=== PATIENT | female | born 1950 | race Caucasian/White ===

== ENCOUNTER 2016-05-26 10:57 | Inpatient (IN) | payer MEDICARE ==
[~2016-05-26] VITALS: Ht 167.6 cm; Wt 117.8 kg
[~2016-05-26 10:57] MED LIST: ALBU18HF2 INH; ALBU18HF4 IH; ALBU8.5H INH; AMLO5TAB PO; BACL10TA PO; CALC-16 PO; CELE-85 PO; FENT1PAT53 TD; FLUD0.1T10 PO; FLUT16SP EA NOSTRIL; HYDR-4078 PO; LEVO100T12 PO; LISI40TA4 PO; MAGN400T26 PO; METF-200 PO; MONT10TA25 PO; NICO1PAT16 TOP; NITR0.4T SL; OMEP40CA52 PO
--- OUTSIDE RECORDS SUMMARY | 2016-05-26 12:52 | XMS REPORT | Continuity of Care Document ---
Author Author [facility] Organization [facility] Address Unknown Phone Unavailable Support Name Relationship Address Phone SUSAN GONSALES MD [place] [address] ROLANDYUE PARISREN Next Of Kin Unknown [phone] Insurance Providers Payer Name Policy Number Subscriber Name Relationship Medicare [id number] Con Harrell 17 Self Advance Directives Directive Response Recorded Date/Time Advanced Directives Type None 09/15/13 3:01am Ordered Resuscitation Status Full Code, unverified 08/20/13 8:00am Resuscitation Documents on File No 08/20/13 9:43am Chief Complaint and Reason for Visit Chief Complaint SYMPTOMATIC ANEMIA Reason for Visit Dyspnea Pulmonary edema Anemia Problems Medical Problems Problem Onset Date Status Dyspnea Unknown Active Headache Unknown Active Chest pain, rule out acute myocardial infarction Unknown Active Dyspnea Unknown Active Chest pain, atypical Unknown Active Chest pain, atypical Unknown Active Chest pain, rule out acute myocardial infarction Unknown Active Back pain, thoracic Unknown Active Chest pain, rule out acute myocardial infarction Unknown Active Pulmonary edema Unknown Active Fluid overload Unknown Active Angioedema Unknown Active Anemia 03/01/2014 Active Medications Medication Dose Route Sig Days/Qty Instructions Order Date Discontinued Date Status Olmesartan/Hydrochlorothiazide 1 Udtab PO 03/27/08 06/12/09 Discontinued Cyclobenzaprine Hcl 10 Mg PO BEDTIME 07/02/09 03/16/12 Discontinued Fexofenadine Hcl 180 Mg PO 03/27/08 06/12/09 Discontinued Propranolol Hcl 40 Mg PO 03/27/08 06/12/09 Discontinued Prednisone 10 Mg PO 03/27/08 04/24/08 Discontinued Azithromycin 250 Mg PO 03/27/08 04/24/08 Discontinued [Diovan] 04/24/08 06/12/09 Discontinued [Flexeril] 06/15/09 07/02/09 Discontinued [Lidocaine Patch] 04/24/08 06/12/09 Discontinued Furosemide 1 Tab PO DAILY 02/14/09 06/12/09 Discontinued Fexofenadine Hcl 1 Tab PO DAILY 07/02/09 03/16/12 Discontinued Hydrocodone Bit/Acetaminophen 1 Tab PO THREE TIMES A DAY 07/02/09 Discontinued Valsartan/Hydrochlorothiazide 1 Tab PO DAILY 06/12/09 06/15/09 Discontinued Montelukast Sodium 10 Mg PO DAILY 07/02/09 Active Lisinopril 5 Mg PO DAILY 07/02/09 06/16/13 Discontinued Albuterol Sulfate 2 Puff IH FOUR TIMES DAILY PRN PRN ORDERS 07/04/10 Active [Lidocaine Patch5%] 1 Patch TD NEEDED 07/04/10 Active Calcium 500 Mg PO THREE TIMES A DAY 07/04/10 03/16/12 Discontinued Eszopiclone 3 Mg PO BEDTIME 07/04/10 03/16/12 Discontinued Celecoxib 200 Mg PO DAILY 07/04/10 06/12/13 Discontinued Zoledronic Acid/Mannitol/Water IM YEARLY 07/04/10 Active Fluticasone Propionate NS TWICE A DAY 07/04/10 06/12/13 Discontinued Pregabalin 50 Mg PO THREE TIMES A DAY 07/07/10 03/16/12 Discontinued Levothyroxine Sodium 75 Mcg PO DAILY 03/16/12 Active Hydrocodone Bit/Acetaminophen 1 Tab PO THREE TIMES A DAY PRN PAIN 06/2306/12/13 Discontinued Cetirizine Hcl 10 Mg PO DAILY 03/16/12 Active Fentanyl 1 Patch TD q3d 03/16/12 Active Calcium Carbonate 500 Mg TWICE A DAY 02/12/13 Active Magnesium Oxide 400 Mg PO DAILY RESTART 08/22/13 02/12/13 Active Metformin Hcl 500 Mg PO DAILY 1 Qty BEST TAKEN WITH MEALS 02/12/13 Active Trazodone Hcl 200 Mg PO BEDTIME 02/12/13 02/13/13 Discontinued Cholecalciferol 2,000 Unit PO DAILY 02/12/13 Active Fludrocortisone Acetate 0.1 Mg PO DAILY 30 Days 02/13/13 06/12/13 Discontinued Meclizine Hcl 25 Mg PO EVERY 4-6 HOURS PRN DIZZINESS 30 Qty 02/13/13 Active Ondansetron 4 Mg PO NEEDED 06/12/13 Active Promethazine Hcl 25 Mg PO TID PRN 06/12/13 Active Hydrocodone Bit/Acetaminophen 0.5 Tab PO THREE TIMES A DAY PRN PAIN 06/12/13 Active Lisinopril 20 Mg PO DAILY 06/16/13 Active Furosemide 40 Mg PO DAILY 06/16/13 06/16/13 Discontinued Amlodipine Besylate 5 Mg PO DAILY 06/18/13 Active Furosemide 40 Mg PO DAILY 06/18/13 Active Potassium Chloride 20 Meq PO DAILY 2 Qty RESTART 08/22/13 06/19/13 Active Fluticasone Propionate 50 Mcg NS DAILY 06/19/13 Active Fludrocortisone Acetate 0.05 Mg PO DAILY 06/19/13 Active Pravastatin Sodium 40 Mg PO DAILY 08/20/13 Active Nebivolol Hcl 10 Mg PO 08/20/13 Active Aspirin 81 Mg PO DAILY 08/20/13 03/01/14 Discontinued Pantoprazole Sodium 40 Mg PO DAILY 08/20/13 Active Nitroglycerin 0.4 Mg SL NEEDED 08/20/13 Active Prednisone 60 Mg PO GIVE WITH BREAKFAST 5 Days 02/19/14 03/01/14 Discontinued Ferrous Sulfate 1 Tab PO TWICE DAILY WITH MEALS 60 Qty BEST WITH FOOD. Active Social History Social History Problem Response Recorded Date/Time Chewing Tobacco Status No 09/15/2013 3:22am Hx Substance Use No 02/19/2014 9:54pm Hx Alcohol Use No 02/19/2014 9:54pm Has the pt used tobacco in the last 12 months Yes 02/27/2014 1:17pm Tobacco Usage smoke 06/12/2013 10:38pm Query Response Start Date Stop Date Smoking Status Current every day smoker Hospital Discharge Instructions Instructions: Care Instructions: Reason for Hospitalization: ANEMIA I was in the hospital because (patient own words): "MY LEGS AND FEET ARE STILL SWOLLEN" Condition at time of discharge: Good Patient Instructions: per protocol Notify Physician If: fever to 100.5, jaundice, breathing too hard to eat or sleep. Weight Pounds: 7 (lbs) Weight Ounces: 8.46 (oz) Dismissal Weight: 7lb 2.99oz Bilirubin Level: 6.1 Congenital Heart Disease Screening Result: Pass I was in the hospital because (patient own words): "I FELL AND COULDN'T WALK, SO I CAME IN TO GET CHECKED OUT" Discharge Diet: Regular Diet Discharge Activity: No weight bearing on left leg. Elevate left leg. Apply ice pack to left knee to reduce swelling. May ambulate with front wheeled walker but must avoid weight bearing left leg. Follow Up Appointments: Scheduled for surgical repair of left tibial plateau fracture by Dr. Abdullahi Van on 03/03/14. Patient Instructions: Same as discharge activity listed above Take medications as directed. Durable Medical Equipment: Front wheeled Walker Notify Physician If: Severe pain not controlled with Roxicodone 5 mg 1-2 tabs po q4-6hrs prn pain. Condition at time of discharge: Good Plan of Care Discharge Date 03/01/14 3:15pm Disposition 01 DISCHARGED HOME, SELF-CARE Instructions/Education Provided Magnesium Anemia DI for Hyponatremia Prescriptions See Medications Section Functional Status Query Response Date Recorded Physical Hygiene Self March 01, 2014 1:16pm Disabilities Visual September 15, 2013 3:22am Devices Used Dentures August 21, 2013 2:50pm Dressing Self August 21, 2013 2:50pm Ambulation Self September 15, 2013 3:22am Diet Self August 21, 2013 2:50pm Mental Status Alert Oriented September 15, 2013 3:22am Disabilities Visual September 15, 2013 3:22am Devices Used Dentures August 21, 2013 2:50pm Physical Hygiene Self March 01, 2014 1:16pm Dressing Self August 21, 2013 2:50pm Ambulation Self September 15, 2013 3:22am Diet Self August 21, 2013 2:50pm Allergies, Adverse Reactions, Alerts Allergen Type Severity Reaction Status Last Updated Iodinated Contrast Media - IV Dye Allergy Unknown Active 02/27/14 Penicillin Adverse Reaction Mild NAUSEA Active 02/27/14 Lisinopril Allergy Unknown Active 02/27/14 Iodine Allergy Unknown IV-BREATHING PROBLEMS Active 02/27/14 Morphine Allergy Unknown SKIN PEELED FROM HANDS AND MOUTH Active 02/27/14 Methimazole Allergy Mild RASH Active 02/27/14 Immunizations Name Given Type Hx Influenza Vaccination No Historical Hx Pneumococcal Vaccination Y 02/27/14 Historical Hx Influenza Vaccination No Historical Vital Signs Acute Vital Signs Vital Response Date/Time Temperature (Fahrenheit) 98.2 deg F (96.8 - 99.1) Temperature (Calculated Celsius) 36.49495 degrees C (36.0 - 37.3) Temperature Source Oral Pulse Rate (adult) 78 bpm (60 - 100) Respiratory Rate 16 breaths/min (10 - 20) Height 5 ft 6 in Weight 235 lb Body Mass Index 37.0 kg/m^2 Results Test Source Date Result Interp. Ref. Range Comments Absolute Reticulocyte Count February 27, 2014 1:42pm 0.0658 T/MM3 N 0.0300-0.0900 Activated Partial Thromboplast Time August 02, 2013 6:10pm 27.3 SEC N 24- 36 Alanine Aminotransferase (ALT/SGPT) March 01, 2014 5:12am 24 U/L N 9- 52 Albumin March 01, 2014 5:12am 4.0 G/DL N 3.5-5.0 Albumin/Globulin Ratio March 01, 2014 5:12am 1.3 RATIO N 1.1-2.2 Alkaline Phosphatase March 01, 2014 5:12am 83 U/L N 38-126 Amylase Level July 02, 2009 2:05pm 73 U/L N 30-110 Anion Gap March 01, 2014 5:12am 10 MEQ/L N 5-15 Aspartate Amino Transf (AST/SGOT) March 01, 2014 5:12am 14 U/L N 14- 36 B-Type Natriuretic Peptide July 02, 2009 2:05pm < 15 PG/ML L 15-100 BUN/Creatinine Ratio March 01, 2014 5:12am 13 RATIO N 6-26 Band Neutrophils # March 01, 2014 5:12am 0.1 T/MM3 - Band Neutrophils % March 01, 2014 5:12am 1.0 % N 0-6 Basophils # (Auto) February 28, 2014 4:51am 0.1 T/MM3 N 0-0.2 Basophils # (Manual) March 27, 2008 1:09pm 0.0 T/MM3 N 0-0.2 Basophils % (Manual) March 27, 2008 1:09pm 0.0 % N 0-2 Basophils (%) (Auto) February 28, 2014 4:51am 0.4 % N 0-2 Blood Urea Nitrogen March 01, 2014 5:12am 16.0 MG/DL N 7-17 Calcium Level March 01, 2014 5:12am 9.6 MG/DL N 8.4-10.2 Calculated Osmolality March 01, 2014 5:12am 263 MOSM/KG N 261-280 Carbon Dioxide Level March 01, 2014 5:12am 33 MEQ/L H 22-30 Chemistry Specimen Hemolysis March 01, 2014 5:12am < 15 0-25 0-25 : No Hemolysis.26-70: Slight Hemolysis - can falsely elevate K and Urine Protein. 71-285: Moderate Hemolysis - can falsely elevate K, Troponin I, CA 19-9, PTH, CSF GLucose, and Urine Protein, and can falsely decrease Phenytoin. 286-999: Gross Hemolysis - can falsely elevate K, Troponin I, CA 19-9, PTH, CSF Glucose, and Urine Protine, and can falsely decrease Phenytoin. Recommend specimen recollection. Chloride Level March 01, 2014 5:12am 93 MEQ/L L 98-107 Creatinine March 01, 2014 5:12am 1.2 MG/DL N 0.7-1.2 D-Dimer August 02, 2013 6:10pm 185 NG/ML N 0-230 <224 NG/ML=PRESUMPTIVE NEGATIVE FOR PE OR DVT>224 NG/ML=ADDITIONAL EVALUATION FOR PE OR DVT RECOMMENDED EKG April 25, 2008 7:15am Complete - Eosinophils # (Auto) February 28, 2014 4:51am 0.2 T/MM3 N 0-0.5 Eosinophils # (Manual) March 01, 2014 5:12am 0.2 T/MM3 N 0-0.5 Eosinophils % (Manual) March 01, 2014 5:12am 2.0 % N 0-4 Eosinophils (%) (Auto) February 28, 2014 4:51am 2.1 % N 0-4 Erythrocyte Sedimentation Rate February 12, 2013 5:00pm 15 MM/HR N 0-20 --- 02/12/13 1945 ---ESR previously reported as: 1 MM/HR Ferritin February 27, 2014 1:42pm 4.99 NG/ML L 11-264 Free Thyroxine April 24, 2008 2:30am 1.04 NG/DL N 0.78-2.19 Free Triiodothyronine April 24, 2008 2:30am 3.20 PG/ML N 2.77-5.27 Globulin March 01, 2014 5:12am 3.0 G/DL N 2.4-3.6 Glomerular Filtration Rate Calc March 01, 2014 5:12am 45 - Glucometer August 21, 2013 6:25am 138 mg/dL H 65-110 Glucose Level March 01, 2014 5:12am 103 MG/DL N 65-110 Group A Streptococcus Screen February 19, 2014 9:38pm Negative - Strep culture confirmation to follow Hematocrit March 01, 2014 5:12am 31.3 % L 36-46 Hemoglobin March 01, 2014 5:12am 9.3 GM/DL L 12-16 Icterus Index March 01, 2014 5:12am < 2 0-7 Immature Granulocyte # (Auto) February 28, 2014 4:51am 0.14 T/MM3 H 0.00 -0.03 Immature Granulocyte % (Auto) February 28, 2014 4:51am 1.3 % H 0.0-0.5 Immature Reticulocyte Fraction February 27, 2014 1:42pm 17.5 % H 3.3- 14.5 Influenza Type A Antigen March 16, 2012 10:35pm Negative - Negative for Flu A protein antigen. Assay sensitivity isbetween 65-83%. A negative result does not exclude influenza virus infection. "Influenza FA" may be ordered if clinical presentation warrants confirmatory testing. Influenza Type B Antigen March 16, 2012 10:35pm Negative - Negative for Flu B protein antigen. Assay sensitivity isbetween 65-83%. A negative result does not exclude influenza virus infection. "Influenza FA" may be ordered if clinical presentation warrants confirmatory testing. Iron Level February 27, 2014 1:42pm 28 UG/DL L 37-170 Lab Scanned Report August 16, 2010 6:20pm LAB TEST FORM REQUEST [id number] - Lipase July 02, 2009 2:05pm 63 U/L N 23-300 Lymphocytes # (Auto) February 28, 2014 4:51am 3.3 T/MM3 N 1-4.8 Lymphocytes # (Manual) March 01, 2014 5:12am 3.4 T/MM3 N 1-4.8 Lymphocytes % (Manual) March 01, 2014 5:12am 34.0 % N 23-45 Lymphocytes (%) (Auto) February 28, 2014 4:51am 29.1 % N 23-45 Magnesium Level March 01, 2014 1:39pm 2.1 MG/DL N 1.6-2.3 Mean Corpuscular Hemoglobin March 01, 2014 5:12am 21.4 UUG L 26-34 Mean Corpuscular Hemoglobin Concent March 01, 2014 5:12am 29.7 GM/DL L 31-37 Mean Corpuscular Volume March 01, 2014 5:12am 72.0 UM3 L 80-100 Mean Platelet Volume March 01, 2014 5:12am 8.7 UM3 L 9.4-12.4 Monocytes # (Auto) February 28, 2014 4:51am 1.2 T/MM3 H 0-0.8 Monocytes # (Manual) March 01, 2014 5:12am 0.9 T/MM3 H 0-0.8 Monocytes % (Manual) March 01, 2014 5:12am 9.0 % N 0-9.0 Monocytes (%) (Auto) February 28, 2014 4:51am 10.9 % H 0-9.0 Monoscreen February 19, 2014 9:38pm Negative - AG-Yrt-U-Type Natriuretic Peptide March 01, 2014 5:12am 419 PG/ML H 0 -175 Rule in cut points: <50 years old=450; 50-75 years old=900; >75 years old=1800; When utilizing ProBNP rule-in cut points, adjustment for impaired renal function is typically not required. Neutrophils # (Auto) February 28, 2014 4:51am 6.3 T/MM3 N 1.8-7.7 Neutrophils # (Manual) March 01, 2014 5:12am 5.4 T/MM3 N 1.8-7.7 Neutrophils % (Manual) March 01, 2014 5:12am 54.0 % N 33-66 Neutrophils (%) (Auto) February 28, 2014 4:51am 56.2 % N 33-66 Percent Iron Saturation February 27, 2014 1:42pm 5 % L 9-55 Percent Reticulocyte Count February 27, 2014 1:42pm 1.9 % H 0.6-1.7 Platelet Count March 01, 2014 5:12am 408 T/MM3 H 130-400 Potassium Level March 01, 2014 5:12am 4.2 MEQ/L N 3.6-5 Prothromb Time International Ratio August 02, 2013 6:10pm 0.94 N 0.86-1.10 THERAPUTIC RANGE=2.00-3.00 FOR ANTI-THROMBOSIS THERAPUTIC RANGE=2.50-3.50 FOR IMPLANTED VALVE RDW Standard Deviation March 01, 2014 5:12am 54.8 FL H 36.9-50.2 Red Blood Count March 01, 2014 5:12am 4.35 M/MM3 N 4.00-5.20 Reticulocyte Hgb Content (CHr) February 27, 2014 1:42pm 19.5 PG L 30.8- 36.6 Sodium Level March 01, 2014 5:12am 136 MEQ/L N 134-144 Thyroid Stimulating Hormone (TSH) February 12, 2013 5:00pm 4.40 MIU/L N 0.47-4.68 Total Bilirubin March 01, 2014 5:12am 0.50 MG/DL N 0.20-1.30 Total Iron Binding Capacity February 27, 2014 1:42pm 513 UG/DL H 261- 497 Total Protein March 01, 2014 5:12am 7.0 G/DL N 6.3-8.2 Troponin I September 15, 2013 2:45am < 0.012 ng/ml 0-0.12 Turbidity March 01, 2014 5:12am < 20 0-20 Urinalysis Comment February 19, 2014 9:50pm Microscopic not ind. - Has specimen been collected/obtained? Y Urine Bacteria February 12, 2013 7:05pm 2+ H - Has specimen been collected/obtained? Y Urine Bilirubin February 19, 2014 9:50pm Negative - Has specimen been collected/obtained? Y Urine Blood February 19, 2014 9:50pm Trace-intact H - Has specimen been collected/obtained? Y Urine Collection Type February 19, 2014 9:50pm Cleancatch-midstream - Has specimen been collected/obtained? Y Urine Color February 19, 2014 9:50pm Yellow - Has specimen been collected/obtained? Y Urine Culture Indicated February 12, 2013 7:05pm Cult reflexed &setup - GUIDANCE SERVICES COORDINATOR PER RN. Urine Glucose (UA) February 19, 2014 9:50pm Negative - Has specimen been collected/obtained? Y Urine Hyaline Casts February 12, 2013 7:05pm 5-10 /LPF - Has specimen been collected/obtained? Y Urine Ketones February 19, 2014 9:50pm Negative - Has specimen been collected/obtained? Y Urine Leukocyte Esterase February 19, 2014 9:50pm Negative - Has specimen been collected/obtained? Y Urine Microscopic Not Indicated July 07, 2010 1:30am Not indicated - Has specimen been collected/obtained? Y Urine Mucus February 12, 2013 7:05pm Present - Has specimen been collected/obtained? Y Urine Nitrite February 19, 2014 9:50pm Negative - Has specimen been collected/obtained? Y Urine Protein February 19, 2014 9:50pm Negative - Has specimen been collected/obtained? Y Urine RBC February 12, 2013 7:05pm None seen /HPF - Has specimen been collected/obtained? Y Urine Specific [place] February 19, 2014 9:50pm 1.010 L - Has specimen been collected/obtained? Y Urine Squamous Epithelial Cells February 12, 2013 7:05pm 0-5 - Has specimen been collected/obtained? Y Urine Turbidity February 19, 2014 9:50pm Clear - Has specimen been collected/obtained? Y Urine Urobilinogen February 19, 2014 9:50pm 0.2 EU/DL - Has specimen been collected/obtained? Y Urine WBC February 12, 2013 7:05pm 0-1 /HPF - Has specimen been collected/obtained? Y Urine Yeast February 12, 2013 7:05pm 2+ H - Has specimen been collected /obtained? Y Urine pH February 19, 2014 9:50pm 5.5 - Has specimen been collected/ obtained? Y White Blood Count March 01, 2014 5:12am 10.0 T/MM3 N 4.5-11.0 Group A Streptococcus Culture Throat February 19, 2014 9:52pm Helicobacter pylori Rapid Urease Gastric Biopsy February 28, 2014 1:50pm Urine Culture Urine, Clean Catch-Midstream February 12, 2013 7:40pm Gram Positive Mat Name: CON HARRELL Unit #: [id number] : [id number] Sex: F Loc / Svc: [facility] [place] DOS: Signed Report #: [id number] DIAGNOSTIC IMAGING REPORT TYPE OF EXAM: US PELVIC (NON-OB) Dictated By: ABDULLAHI ONOFRE MD INDICATION: ITS.REASON: Bloody Pelvic discharge US PELVIC (NON-OB): Comparison: None FINDINGS: Transabdominal pelvic imaging was performed. The uterus and ovaries are surgically absent. No masses or free fluid seen within the pelvis or adnexa. Partially visualized urinary bladder appears grossly normal. IMPRESSION: No pelvic masses or free fluid seen. . Procedures Procedure Status Date Provider(s) ROUTINE VENIPUNCTURE completed 02/19/14 CT SOFT TISSUE NECK W/O DYE completed 02/19/14 COMPREHEN METABOLIC PANEL completed 02/19/14 URINALYSIS AUTO W/O SCOPE completed 02/19/14 COMPLETE CBC W/AUTO DIFF WBC completed 02/19/14 HETEROPHILE ANTIBODY SCREEN completed 02/19/14 STREP A AG EIA completed 02/19/14 THER/PROPH/DIAG IV INF INIT completed 02/19/14 TX/PRO/DX INJ NEW DRUG ADDON completed 02/19/14 EMERGENCY DEPT VISIT completed 02/19/14 [id number] ITEM OR SERVICE completed 02/19/14 [id number]"INJECTION, DEXAMETHASONE SODIUM PHOSPHATE, 1MG" completed 02/19/14 [id number]"INFUSION, NORMAL SALINE SOLUTION , 1000 CC" completed 02/19/14 Esophagogastroduodenoscopy (EGD) with closed biopsy completed 02/28/14 FRANKIE HUERTA MD Encounters Encounter Location Date/Time Admitted Inpatient [facility] 02/28/14 4:31pm Departed Emergency Room [facility] 02/19/14 8:31pm Recent Diagnosis Dyspnea Pulmonary edema Anemia
--- OUTSIDE RECORDS SUMMARY | 2016-05-26 12:52 | XMS REPORT | Continuity of Care Document ---
Author Author [facility] Organization [facility] Address Unknown Phone Unavailable Support Name Relationship Address Phone SUSAN SANCHES MD Caregiver [address] [place] [address] Unavailable KYRIE COPPOLA MD Caregiver [address] [address] Unavailable DANNY WATKINS Next Of Kin Unknown [phone] Insurance Providers Guarantor Julio CesarConLovely Address [address] [place] [address] Email DENIED 16 Payer Medicare Policy Number [id number] Subscriber's Name Con Harrell Relationship 18 Self Advance Directives Directive Response Recorded Date/Time Advanced Directives Type None 09/15/13 3:01am Ordered Resuscitation Status Full Code, unverified 08/20/13 8:00am Resuscitation Documents on File No 08/20/13 9:43am Chief Complaint and Reason for Visit Chief Complaint Headache Reason for Visit Dyspnea Headache Non-insulin dependent type 2 diabetes mellitus Problems Active Problems Medical Problem Onset Date Status Anemia 03/01/2014 Acute Angioedema Unknown Acute Back pain, thoracic Unknown Chronic Chest pain, atypical Unknown Acute Chest pain, rule out acute myocardial infarction Unknown Acute Chest wall pain Unknown Acute Dehydration Unknown Acute Dyspnea Unknown Acute Dyspnea Unknown Acute Elevated d-dimer Unknown Essential (primary) hypertension Unknown Chronic Exacerbation of chronic back pain Unknown Acute Fever Unknown Fluid overload Unknown Acute GERD (gastroesophageal reflux disease) Unknown Chronic Graves disease Unknown Chronic Headache Unknown Acute Hypercholesteremia Unknown Chronic Morbid obesity Unknown Chronic Non-insulin dependent type 2 diabetes mellitus Unknown Chronic Pain and swelling of right lower extremity Unknown Patient left without being seen Unknown Acute Pulmonary edema Unknown Acute Past Problems Medical Problem Onset Date COPD exacerbation Unknown Cellulitis of right lower extremity Unknown HCAP (healthcare-associated pneumonia) Unknown Hyponatremia Unknown Hypoxia Unknown Medications Current Home Medications Medication Dose Units Route Directions Days Qty Instructions Start Date Albuterol Sulfate (Proair Hfa 90 Mcg/Actuation) 8.5 Gm Hfa.aer.ad 1 Puff Inhalation Every 4 Hours as needed for Prn Orders 04/29/16 Albuterol Sulfate (Ventolin Hfa) 18 Gm Hfa.aer.ad 2 Puff Inhalation Four Times Daily as needed for Prn Orders 07/04/10 Albuterol Sulfate (Ventolin Hfa 90 Mcg/Actuation) 18 Gm Hfa.aer.ad 1 Puff Inhalation Twice A Day as needed for Prn Orders 04/29/16 Amlodipine Besylate (Norvasc) 5 Mg Tablet 5 Mg Oral Twice A Day 06/18/13 Baclofen 10 Mg Tablet 10 Mg Oral Three Times A Day 30 Tablet Calcium Carbonate (Oyster Shell Calcium) 500 Mg Tablet 500 Mg Oral Twice A Day 04/29/16 Celecoxib 200 Mg Capsule 200 Mg Oral Twice A Day 01/10/16 Fentanyl (Fentanyl 75 Mcg/Hr) 1 Patch .72 H Patch.td72 1 Patch Transderm Every 3 Days 03/16/12 Fludrocortisone Acetate 0.1 Mg Tablet 0.05 Mg Oral Daily 06/19/13 Fluticasone Propionate (Fluticasone Prop 50 Mcg/Actuation Nasal [place]) 120 [place]/16 G [place] 2 [place] Each Nostril Twice A Day 04/29/16 Hydrocodone/Acetaminophen (Demotte 10-325 Tablet) 10-325 Tablet 0.5 Tab Oral Three Times A Day as needed for Pain 04/29/16 Levothyroxine Sodium 100 Mcg Tablet 100 Mcg Oral Before Breakfast 01/10/16 Lisinopril 40 Mg Tablet 40 Mg Oral Daily 03/31/16 Magnesium Oxide 400 Mg Tablet 400 Mg Oral Daily 02/12/13 Metformin Hcl 500 Mg Tablet 500 Mg Oral Twice A Day 02/12/13 Montelukast Sodium 10 Mg Tablet 10 Mg Oral Bedtime 04/29/16 Nicotine (Nicotine Patch 21 Mg/24HR) 1 Each Patch.td24 1 Patch Topically Daily 04/29/16 Nitroglycerin (Nitrostat) 0.4 Mg Tablet 0.4 Mg Sublingual Every 5 Minutes X 3 as needed for Chest Pain 04/29/16 Omeprazole 40 Mg Capsule.dr 40 Mg Oral Before Breakfast 04/29/16 Past Home Medications Medication Directions Ordered Status Aspirin 81 Mg Tablet.dr, 81 Mg Oral Daily 08/20/13 Discontinued Azithromycin (Zithromax) 250 Mg Tablet, 250 Mg Oral 03/27/08 Discontinued Calcium 500 Mg Tablet, 500 Mg Oral Three Times A Day 07/04/10 Discontinued Celecoxib (Celebrex) 200 Mg Capsule, 200 Mg Oral Daily 07/04/10 Discontinued Cephalexin 500 Mg Tablet, 1 Tab Oral Twice A Day 01/12/16 Discontinued Cholecalciferol (Vitamin D) 1,000 Unit Tablet, 2 Tab Oral Daily 02/12/13 Discontinued Cyclobenzaprine Hcl 10 Mg Tablet, 10 Mg Oral Bedtime 07/02/09 Discontinued Diovan , 04/24/08 Discontinued Eszopiclone (Lunesta) 3 Mg Tablet, 3 Mg Oral Bedtime 07/04/10 Discontinued Fexofenadine Hcl (Petra) 180 Mg Tablet, 1 Tab Oral Daily 07/02/09 Discontinued Fexofenadine Hcl 180 Mg Tablet, 180 Mg Oral 03/27/08 Discontinued Flexeril , 06/15/09 Discontinued Fludrocortisone Acetate (Florinef) 0.1 Mg Tablet, 0.1 Mg Oral Daily 02/13/13 Discontinued Fluticasone Propionate (Flonase) 16 Gm [place].susp, Nasal Twice A Day Discontinued Furosemide 40 Mg Tablet, 40 Mg Oral Daily 06/16/13 Discontinued Furosemide (Lasix) 20 Mg Tablet, 1 Tab Oral Daily 02/14/09 Discontinued Hydrocodone Bit/Acetaminophen (Lortab 10-500 Tablet) 1 Tab Tablet, 1 Tab Oral Three Times A Day as needed for Pain 03/16/12 Discontinued Hydrocodone Bit/Acetaminophen (Lortab 10-500 Tablet) 1 Tab Tablet, 1 Tab Oral Three Times A Day 07/02/09 Discontinued Hydrocodone/Acetaminophen (Demotte 10-325 Tablet) 1 Each Tablet, 1 Tab Oral Every 6 Hours as needed for Pain 09/08/14 Discontinued Lidocaine Patch , 04/24/08 Discontinued Lisinopril 5 Mg Tablet, 5 Mg Oral Daily 07/02/09 Discontinued Olmesartan/Hydrochlorothiazide (Benicar Hct 20-12.5 Mg Tablet) 1 Udtab Tablet, 1 Udtab Oral 03/27/08 Discontinued Prednisone 20 Mg Tablet, 60 Mg Oral Give With Breakfast 02/19/14 Discontinued Prednisone 10 Mg Tablet, 10 Mg Oral 03/27/08 Discontinued Pregabalin (Lyrica) 50 Mg Capsule, 50 Mg Oral Three Times A Day 07/07/10 Discontinued Propranolol Hcl (Inderal) 40 Mg Tablet, 40 Mg Oral 03/27/08 Discontinued Trazodone Hcl 100 Mg Tablet, 200 Mg Oral Bedtime 02/12/13 Discontinued Valsartan/Hydrochlorothiazide (Diovan Hct 160-25 Mg Tablet) 1 Tab Tablet, 1 Tab Oral Daily 06/12/09 Discontinued Social History Social History Problem Response Recorded Date/Time Onset Date Status Tobacco use 03/19/2015 3:21pm Unknown Active Chewing Tobacco Status No 09/15/2013 3:22am Not Applicable Not Applicable Hx Substance Use No 04/29/2016 2:10pm Not Applicable Not Applicable Hx Alcohol Use N PT DENIES 04/29/2016 2:10pm Not Applicable Not Applicable Has the pt used tobacco in the last 12 months Yes 01/10/2016 6:43pm Not Applicable Not Applicable Tobacco Usage smoke 06/12/2013 10:38pm Not Applicable Not Applicable Query Response Start Date Stop Date Smoking Status Current every day smoker Hospital Discharge Instructions No hospital discharge instructions. Plan of Care Discharge Date 04/29/16 10:00pm Disposition 01 DISCHARGED HOME, SELF-CARE Condition at Discharge Improved Instructions/Education Provided Acute Headache (ED) Prescriptions See Medication Section Referrals SUSAN SANCHES MD Address: [address] [place], [place] [id number] Additional Instructions/Education Use anti-inflammatory of your choice, either ibuprofen 600 mg 4 times daily or Aleve 2 tablets twice daily for baseline pain control Baclofen 10 mg one tablet 3 times daily as needed for tension headache or muscle spasms See Dr. Sanches next week if symptoms are not improving. Care Plan and Goals Physician Care Plan Problem: Tension headache with dyspnea, negative studies for DVT or PE Goal: Follow up with primary care provider Instructions: Take medications and follow care plan as discussed/written Use anti-inflammatory of your choice, either ibuprofen 600 mg 4 times daily or Aleve 2 tablets twice daily for baseline pain control Baclofen 10 mg one tablet 3 times daily as needed for tension headache or muscle spasms See Dr. Sanches next week if symptoms are not improving. Functional Status No functional status results. Allergies, Adverse Reactions, Alerts Allergen Type Severity Reaction Status Last Updated Iodinated Contrast Media - Oral and Allergy Unknown Active 04/29/16 Penicillin Adverse Reaction Mild NAUSEA Active 04/29/16 Lisinopril Allergy Unknown Active 04/29/16 Iodine Allergy Unknown IV-BREATHING PROBLEMS Active 04/29/16 Morphine Allergy Unknown SKIN PEELED FROM HANDS AND MOUTH Active 04/29/16 Methimazole Allergy Mild RASH Active 04/29/16 Immunizations Query Response on File Recorded Date/Time Hx Influenza Vaccination No 01/10/16 6:43pm Hx Pneumococcal Vaccination Y 02/27/14 01/10/16 6:43pm Hx Influenza Vaccination No 01/10/16 6:43pm Influenza Vaccine Hx NO 04/29/16 2:10pm Vital Signs Acute Vital Signs Vital Response Date/Time Temperature (Fahrenheit) 99.2 deg F (96.8 - 99.1) 04/29/2016 10:00pm Temperature (Calculated Celsius) 37.89817 degrees C (36.0 - 37.3) 04/29/2016 10:00pm Pulse Rate (adult) 76 bpm (60 - 100) 04/29/2016 10:00pm Respiratory Rate 18 breaths/min (10 - 20) 04/29/2016 10:00pm O2 Sat by Pulse Oximetry 97 % (90 - 100) 04/29/2016 10:00pm Oxygen Flow Rate 2.00 L/min 04/29/2016 10:00pm Blood Pressure 119/58 mm Hg 04/29/2016 10:00pm Height (Feet) 5 feet 04/29/2016 2:10pm Height (Inches) 6.00 inches 04/29/2016 2:10pm Weight (Kilograms) 120.100 kg 04/29/2016 2:10pm Body Mass Index (BMI) 42.0 04/29/2016 2:10pm Results Laboratory Results Test Name Result Units Flags Reference Collection Date/Time Result Date/ Time Comments Prothromb Time International Ratio 0.93 0.76-1.04 04/08/2016 11:32pm 04/08/2016 11:46pm THERAPUTIC RANGE=2.00-3.00 FOR ANTI-THROMBOSIS THERAPUTIC RANGE=2.50-3.50 FOR IMPLANTED VALVE Phosphorus Level 4.8 MG/DL H 2.5-4.5 04/08/2016 11:32pm 04/09/2016 12: 12am Troponin I < 0.012 ng/ml 0-0.12 04/09/2016 1:06am 04/09/2016 1:31am Troponin values with a difference of 55% increase from orginal troponin value represent a true biological DELTA value. (%increase Calc=Orginal Troponin value, divided by subsequent Troponin value, multiplied by 100) [id number]-[id number]-Type Natriuretic Peptide 51 PG/ML 0-175 04/08/2016 11:32p 12:02am Rule in cut points: <50 years old=450; 50-75 years old=900; >75 years old=1800; When utilizing ProBNP rule-in cut points, adjustment for impaired renal function is typically not required. Absolute Reticulocyte Count 0.1260 T/MM3 H 0.0300-0.0900 04/27/2016 3: 32p04/27/2016 3:42pm Percent Reticulocyte Count 3.2 % H 0.6-1.7 04/27/2016 3:04/27/2016 3:42pm Immature Reticulocyte Fraction 21.7 % H 3.3-14.5 04/27/2016 3:32p04/27 3:42pm Reticulocyte Hgb Content (CHr) 23.6 PG L 30.8-36.6 04/27/2016 3:32p 3:42pm Magnesium Level 2.0 MG/DL 1.6-2.3 04/27/2016 3:31p04/27/2016 3:51pm Iron Level 25 UG/DL L 37-170 04/27/2016 3:31p04/29/2016 1:54am Total Iron Binding Capacity 275 UG/DL 261-497 04/27/2016 3:31p2016 2:03am Percent Iron Saturation 9 % 9-55 04/27/2016 3:31p04/29/2016 2:03am Ferritin 2.59 NG/ML L 11-264 04/27/2016 3:31p04/29/2016 2:48am White Blood Count 10.3 T/MM3 4.5-11.0 04/29/2016 3:48pm 04/29/2016 3: 54pm Red Blood Count 3.68 M/MM3 L 4.00-5.20 04/29/2016 3:48pm 04/29/2016 3: 54pm Hemoglobin 8.3 GM/DL L 12-16 04/29/2016 3:48pm 04/29/2016 3:54pm Hematocrit 27.5 % L 36-46 04/29/2016 3:48pm 04/29/2016 3:54pm Mean Corpuscular Volume 74.7 UM3 L 80-100 04/29/2016 3:48pm 04/29/2016 3 :54pm Mean Corpuscular Hemoglobin 22.6 UUG L 26-34 04/29/2016 3:48pm 2016 3:54pm Mean Corpuscular Hemoglobin Concent 30.2 GM/DL L 31-37 04/29/2016 3:48pm 04/29/2016 3:54pm RDW Standard Deviation 45.0 FL 36.9-50.2 04/29/2016 3:48pm 04/29/2016 3 :54pm Platelet Count 330 T/MM3 130-400 04/29/2016 3:48pm 04/29/2016 3:54pm Mean Platelet Volume 9.5 UM3 9.4-12.4 04/29/2016 3:48pm 04/29/2016 3: 54pm Neutrophils (%) (Auto) 70.7 % H 33-66 04/29/2016 3:48pm 04/29/2016 3: 54pm Lymphocytes (%) (Auto) 21.5 % L 23-45 04/29/2016 3:48pm 04/29/2016 3: 54pm Monocytes (%) (Auto) 5.7 % 0-9.0 04/29/2016 3:48pm 04/29/2016 3:54pm Eosinophils (%) (Auto) 1.2 % 0-4 04/29/2016 3:48pm 04/29/2016 3:54pm Basophils (%) (Auto) 0.3 % 0-2 04/29/2016 3:48pm 04/29/2016 3:54pm Immature Granulocyte % (Auto) 0.6 % H 0.0-0.5 04/29/2016 3:48pm 2016 3:54pm Absolute Neutrophils (auto) 7.3 T/MM3 1.8-7.7 04/29/2016 3:48pm 2016 3:54pm Absolute Lymphocytes (auto) 2.2 T/MM3 1-4.8 04/29/2016 3:48pm 2016 3:54pm Absolute Monocytes (auto) 0.6 T/MM3 0-0.8 04/29/2016 3:48pm 04/29/2016 3:54pm Absolute Eosinophils (auto) 0.1 T/MM3 0-0.5 04/29/2016 3:48pm 2016 3:54pm Absolute Basophils (auto) 0.0 T/MM3 0-0.2 04/29/2016 3:48pm 04/29/2016 3:54pm Absolute Immature Granulocyte (auto 0.06 T/MM3 H 0.00-0.03 04/29/2016 3: 48pm 04/29/2016 3:54pm D-Dimer 559 NG/ML H 0-230 04/29/2016 3:48pm 04/29/2016 4:03pm <230 NG/ ML D-DU=PRESUMPTIVE NEGATIVE FOR PE OR DVT >230 NG/ML D-DU=ADDITIONAL EVAL FOR PE OR DVT RECOMMENDED Icterus Index < 2 0-7 04/29/2016 3:48pm 04/29/2016 4:06pm Chemistry Specimen Hemolysis < 15 0-25 04/29/2016 3:48pm 04/29/2016 4 :06pm 0-25: Specimen Exhibited No Hemolysis. Turbidity < 20 0-20 04/29/2016 3:48pm 04/29/2016 4:06pm Sodium Level 133 MEQ/L D L 134-144 04/29/2016 3:48pm 04/29/2016 4:19pm Potassium Level 5.0 MEQ/L 3.6-5 04/29/2016 3:48pm 04/29/2016 4:06pm Chloride Level 98 MEQ/L D 98-107 04/29/2016 3:48pm 04/29/2016 4:19pm Carbon Dioxide Level 25 MEQ/L 22-30 04/29/2016 3:48pm 04/29/2016 4: 06pm Anion Gap 10 MEQ/L 5-15 04/29/2016 3:48pm 04/29/2016 4:06pm Blood Urea Nitrogen 20.0 MG/DL H 7-17 04/29/2016 3:48pm 04/29/2016 4: 06pm Creatinine 1.0 MG/DL D 0.7-1.2 04/29/2016 3:48pm 04/29/2016 4:19pm BUN/Creatinine Ratio 20 RATIO 6-26 04/29/2016 3:48pm 04/29/2016 4:06pm Glomerular Filtration Rate Calc 55 04/29/2016 3:48pm 04/29/2016 4: 06pm Glucose Level 108 MG/DL 65-110 04/29/2016 3:48pm 04/29/2016 4:06pm Calculated Osmolality 260 MOSM/KG L 261-280 04/29/2016 3:48pm 2016 4:06pm Calcium Level 9.3 MG/DL 8.4-10.2 04/29/2016 3:48pm 04/29/2016 4:06pm Total Bilirubin 0.20 MG/DL 0.20-1.30 04/29/2016 3:48pm 04/29/2016 4: 06pm Alkaline Phosphatase 81 U/L 38-126 04/29/2016 3:48pm 04/29/2016 4:06pm Total Protein 6.9 G/DL 6.3-8.2 04/29/2016 3:48pm 04/29/2016 4:06pm Albumin 4.0 G/DL 3.5-5.0 04/29/2016 3:48pm 04/29/2016 4:06pm Globulin 2.9 G/DL 2.4-3.6 04/29/2016 3:48pm 04/29/2016 4:06pm Albumin/Globulin Ratio 1.4 RATIO 1.1-2.2 04/29/2016 3:48pm 04/29/2016 4 :06pm Aspartate Amino Transf (AST/SGOT) 13 U/L L 14-36 04/29/2016 3:48pm 04/29 4:06pm Alanine Aminotransferase (ALT/SGPT) 22 U/L 9-52 04/29/2016 3:48pm 04/29 4:06pm Name: CON HARRELL Unit #: [id number] : 1950 Sex: F Admit Date: Loc / Svc: ED Discharge Date: DIAGNOSTIC IMAGING REPORT Report #: [id number] [facility] TESSIE Garcia Indication: ITS.REASON: headache PROCEDURE: CT HEAD W/O CONTRAST: Encounter: Initial Comparison: June 13, 2013 Technique: Axial CT images through the head were performed without contrast. Iterative Reconstruction dose reducing technique was utilized. FINDINGS: Mild atrophy. The ventricles are of normal size, shape, and contour for the patient's age. There are scattered areas of low attenuation in the white matter which most likely represent changes from chronic microvascular ischemia. The brainstem, cerebellum, and cerebral hemispheres otherwise have a normal morphology and CT attenuation. There is no evidence of midline displacement. No hemorrhage, signs of acute territorial stroke, mass effect, mass lesions, or edema is evident. The visualized portions of the skull base, midface, and calvarium demonstrate no abnormality. The paranasal sinuses are well aerated and free of significant disease. The tympanic and mastoid cavities appear normal. IMPRESSION: No acute intracranial abnormality or hemorrhage. . Procedures Procedure Status Date Provider(s) Chest x-ray 1 view frontal Completed 03/31/16 Metabolic panel total ca Completed 03/31/16 Assay of natriuretic peptide Completed 03/31/16 Assay of troponin quant Completed 03/31/16 Complete cbc w/auto diff wbc Completed 03/31/16 Fibrin degradation quant Completed 03/31/16 Prothrombin time Completed 03/31/16 Electrocardiogram tracing Completed 03/31/16 Airway inhalation treatment Completed 03/31/16 Emergency dept visit Completed 03/31/16 [id number] ITEM OR SERVICE Completed 03/31/16 [id number] ITEM OR SERVICE Completed 03/31/16 [id number] ITEM OR SERVICE Completed 03/31/16 Routine venipuncture Completed 04/08/16 Chest x-ray 1 view frontal Completed 04/08/16 Metabolic panel total ca Completed 04/08/16 Assay of magnesium Completed 04/08/16 Assay of natriuretic peptide Completed 04/08/16 Assay of phosphorus Completed 04/08/16 Assay of troponin quant Completed 04/08/16 Assay of troponin quant Completed 04/08/16 Complete cbc w/auto diff wbc Completed 04/08/16 Prothrombin time Completed 04/08/16 Electrocardiogram tracing Completed 04/08/16 Airway inhalation treatment Completed 04/08/16 Ther/proph/diag inj iv push Completed 04/08/16 Tx/pro/dx inj new drug addon Completed 04/08/16 Emergency dept visit Completed 04/08/16 [id number] ITEM OR SERVICE Completed 04/08/16 [id number] ITEM OR SERVICE Completed 04/08/16 [id number]"INJECTION, LORAZEPAM, 2 MG" Completed 04/08/16 [id number]"INJECTION, METHYLPREDNISOLONE SODIUM SUCCINATE, UP TO Completed Encounters Encounter Location Arrival/Admit Date Discharge/Depart Date Attending Provider Departed Emergency Room [facility] 04/29/16 2:07pm 04/29/16 10: 00pm KYRIE COPPOLA MD [facility] 04/27/16 3:14pm SUSAN SANCHES MD Departed Emergency Room [facility] 04/08/16 11:06pm 04/09/16 2: 15am LUDMILA SIMS DO Departed Emergency Room [facility] 03/31/16 8:34pm 03/31/16 11: 06pm LUDMILA SIMS DO Recent Diagnosis
--- OUTSIDE RECORDS SUMMARY | 2016-05-26 12:52 | XMS REPORT | Continuity of Care Document ---
Author Author [facility] Organization [facility] Address Unknown Phone Unavailable Support Name Relationship Address Phone SUSAN GONSALES MD Caregiver [address] [place], [place] [id number] KYRIE COPPOLA MD Caregiver [facility] [address] [place] [address] Unavailable DANNY WATKINS Next Of Kin Unknown [phone] Insurance Providers Payer Name Policy Number Subscriber Name Relationship Medicare [id number] Con Harrell 17 Self Advance Directives Directive Response Recorded Date/Time Advanced Directives Type None 09/15/13 3:01am Ordered Resuscitation Status Full Code, unverified 08/20/13 8:00am Resuscitation Documents on File No 08/20/13 9:43am Problems Medical Problems Problem Onset Date Status [...] edema Unknown Active Fluid overload Unknown Active Medications Medication Dose Route Sig Days/Qty [...] Active Aspirin 81 Mg PO DAILY 08/20/13 Active Pantoprazole Sodium 40 Mg PO DAILY 08/20/13 Active Nitroglycerin 0.4 Mg SL NEEDED 08/20/13 Active Social History Social History Problem Response Recorded Date/Time Smoking Status Current every day smoker 09/15/2013 3:22am Chewing Tobacco Status No 09/15/2013 3:22am Hx Substance Use No 09/15/2013 3:22am Hx Alcohol Use No 09/15/2013 3:22am Has the pt used tobacco in the last 12 months Yes 06/12/2013 6:31pm Query Response Start Date Stop Date Smoking Status Current every day smoker Hospital Discharge Instructions No hospital discharge instructions. Plan of Care No plan of care. Functional Status Query Response Date Recorded Physical Hygiene Self September 15, 2013 3:22am Disabilities Visual September 15, 2013 3:22am Devices Used Dentures August 21, 2013 2:50pm Dressing Self August 21, 2013 2:50pm Ambulation Self September 15, 2013 3:22am Diet Self August 21, 2013 2:50pm Mental Status Alert Oriented September 15, 2013 3:22am Disabilities Visual September 15, 2013 3:22am Devices Used Dentures August 21, 2013 2:50pm Physical Hygiene Self September 15, 2013 3:22am Dressing Self August 21, 2013 2:50pm Ambulation Self September 15, 2013 3:22am Diet Self August 21, 2013 2:50pm Allergies, Adverse Reactions, Alerts Allergen Type Severity Reaction Status Last Updated Iodinated Contrast Media - IV Dye Allergy Unknown Active 09/15/13 Penicillin Adverse Reaction Mild NAUSEA Active 08/02/13 Iodine Allergy Unknown IV-BREATHING PROBLEMS Active 09/15/13 Morphine Allergy Unknown SKIN PEELED FROM HANDS AND MOUTH Active 09/15/13 Methimazole Allergy Mild RASH Active 09/15/13 Immunizations Name Given Type Hx Influenza Vaccination N "DR. GONSALES DOESN'T GIVE THEM TO ME" Historical Hx Pneumococcal Vaccination N SAME THING FLU SHOT Historical Hx Influenza Vaccination N "DR. GONSALES DOESN'T GIVE THEM TO ME" Historical Vital Signs Acute Vital Signs Vital Response Date/Time Temperature (Fahrenheit) 97.4 deg F (96.8 - 99.1) Temperature (Calculated Celsius) 36.42919 degrees C (36.0 - 37.3) Pulse Rate (adult) 73 bpm (60 - 100) Respiratory Rate 18 breaths/min (10 - 20) O2 Sat by Pulse Oximetry 95 % (90 - 100) Oxygen Flow Rate 2 L/min Blood Pressure 130/53 mm Hg Height 5 ft 6 in Weight 220 lb Body Mass Index 35.0 kg/m^2 Results Test Source Date Result Interp. Ref. Range Comments Activated Partial Thromboplast Time August 02, 2013 6:10pm 27.3 SEC N 24- 36 Alanine Aminotransferase (ALT/SGPT) September 15, 2013 2:45am 20 U/L N 9-52 Albumin September 15, 2013 2:45am 4.2 G/DL N 3.5-5.0 Albumin/Globulin Ratio September 15, 2013 2:45am 1.4 RATIO N 1.1-2.2 Alkaline Phosphatase September 15, 2013 2:45am 76 U/L N 38-126 Amylase Level July 02, 2009 2:05pm 73 U/L N 30-110 Anion Gap September 15, 2013 2:45am 14 MEQ/L N 5-15 Aspartate Amino Transf (AST/SGOT) September 15, 2013 2:45am 15 U/L N 14-36 B-Type Natriuretic Peptide July 02, 2009 2:05pm < 15 PG/ML L 15-100 BUN/Creatinine Ratio September 15, 2013 2:45am 23 RATIO N 6-26 Band Neutrophils # March 16, 2012 10:26pm 0.2 T/MM3 - Band Neutrophils % March 16, 2012 10:26pm 1.0 % N 0-6 Basophils # (Auto) September 15, 2013 2:45am 0.1 T/MM3 N 0-0.2 Basophils # (Manual) March 27, 2008 1:09pm 0.0 T/MM3 N 0-0.2 Basophils % (Manual) March 27, 2008 1:09pm 0.0 % N 0-2 Basophils (%) (Auto) September 15, 2013 2:45am 0.5 % N 0-2 Blood Urea Nitrogen September 15, 2013 2:45am 23.0 MG/DL H 7-17 Calcium Level September 15, 2013 2:45am 9.2 MG/DL N 8.4-10.2 Calculated Osmolality September 15, 2013 2:45am 260 MOSM/KG L 261-280 Carbon Dioxide Level September 15, 2013 2:45am 26 MEQ/L N 22-30 Chemistry Specimen Hemolysis September 15, 2013 2:45am < 15 0-25 0-25: No Hemolysis.26-70: Slight Hemolysis - can falsely elevate K and Urine Protein. 71-285: Moderate Hemolysis - can falsely elevate K, Troponin I, CA 19-9, PTH, CSF GLucose, and Urine Protein, and can falsely decrease Phenytoin. 286-999: Gross Hemolysis - can falsely elevate K, Troponin I, CA 19-9, PTH, CSF Glucose, and Urine Protine, and can falsely decrease Phenytoin. Recommend specimen recollection. Chloride Level September 15, 2013 2:45am 92 MEQ/L L 98-107 Creatinine September 15, 2013 2:45am 1.0 MG/DL N 0.7-1.2 D-Dimer August 02, 2013 6:10pm 185 NG/ML N 0-230 <224 NG/ML=PRESUMPTIVE NEGATIVE FOR PE OR DVT>224 NG/ML=ADDITIONAL EVALUATION FOR PE OR DVT RECOMMENDED EKG April 25, 2008 7:15am Complete - Eosinophils # (Auto) September 15, 2013 2:45am 0.4 T/MM3 N 0-0.5 Eosinophils # (Manual) June 12, 2013 1:21pm 0.3 T/MM3 N 0-0.5 Eosinophils % (Manual) June 12, 2013 1:21pm 2.0 % N 0-4 Eosinophils (%) (Auto) September 15, 2013 2:45am 2.8 % N 0-4 Erythrocyte Sedimentation Rate February 12, 2013 5:00pm 15 MM/HR N 0-20 --- 02/12/13 1945 ---ESR previously reported as: 1 MM/HR Free Thyroxine April 24, 2008 2:30am 1.04 NG/DL N 0.78-2.19 Free Triiodothyronine April 24, 2008 2:30am 3.20 PG/ML N 2.77-5.27 Globulin September 15, 2013 2:45am 2.9 G/DL N 2.4-3.6 Glomerular Filtration Rate Calc September 15, 2013 2:45am 56 - Glucometer August 21, 2013 6:25am 138 mg/dL H 65-110 Glucose Level September 15, 2013 2:45am 120 MG/DL H 65-110 Hematocrit September 15, 2013 2:45am 26.9 % L 36-46 Hemoglobin September 15, 2013 2:45am 8.2 GM/DL L 12-16 Icterus Index September 15, 2013 2:45am < 2 0-7 Immature Granulocyte # (Auto) September 15, 2013 2:45am 0.08 T/MM3 H 0.00- 0.03 Immature Granulocyte % (Auto) September 15, 2013 2:45am 0.6 % H 0.0-0.5 Influenza Type A Antigen March 16, 2012 [...] ordered if clinical presentation warrants confirmatory testing. Lab Scanned Report August 16, 2010 6:20pm LAB TEST FORM REQUEST [id number] - Lipase July 02, 2009 2:05pm 63 U/L N 23-300 Lymphocytes # (Auto) September 15, 2013 2:45am 4.1 T/MM3 N 1-4.8 Lymphocytes # (Manual) June 16, 2013 3:46pm 3.9 T/MM3 N 1-4.8 Lymphocytes % (Manual) June 16, 2013 3:46pm 22.0 % L 23-45 Lymphocytes (%) (Auto) September 15, 2013 2:45am 29.7 % N 23-45 Magnesium Level February 12, 2013 5:00pm 1.9 MG/DL N 1.6-2.3 Mean Corpuscular Hemoglobin September 15, 2013 2:45am 21.6 UUG L 26-34 Mean Corpuscular Hemoglobin Concent September 15, 2013 2:45am 30.5 GM/DL L 31 -37 Mean Corpuscular Volume September 15, 2013 2:45am 70.8 UM3 L 80-100 Mean Platelet Volume September 15, 2013 2:45am 9.6 UM3 N 9.4-12.4 Monocytes # (Auto) September 15, 2013 2:45am 1.1 T/MM3 H 0-0.8 Monocytes # (Manual) June 16, 2013 3:46pm 0.7 T/MM3 N 0-0.8 Monocytes % (Manual) June 16, 2013 3:46pm 4.0 % N 0-9.0 Monocytes (%) (Auto) September 15, 2013 2:45am 8.1 % N 0-9.0 CT-Shh-M-Type Natriuretic Peptide September 15, 2013 2:45am 139 PG/ML N 0- 175 Rule in cut points: <50 years old=450; 50-75 years old=900; >75 years old=1800; When utilizing ProBNP rule-in cut points, adjustment for impaired renal function is typically not required. Neutrophils # (Auto) September 15, 2013 2:45am 8.0 T/MM3 H 1.8-7.7 Neutrophils # (Manual) June 16, 2013 3:46pm 13.2 T/MM3 H 1.8-7.7 Neutrophils % (Manual) June 16, 2013 3:46pm 74.0 % H 33-66 Neutrophils (%) (Auto) September 15, 2013 2:45am 58.3 % N 33-66 Platelet Count September 15, 2013 2:45am 435 T/MM3 H 130-400 Potassium Level September 15, 2013 2:45am 3.9 MEQ/L N 3.6-5 Prothromb Time International Ratio August 02, 2013 6:10pm 0.94 N 0.86-1.10 THERAPUTIC RANGE=2.00-3.00 FOR ANTI-THROMBOSIS THERAPUTIC RANGE=2.50-3.50 FOR IMPLANTED VALVE RDW Standard Deviation September 15, 2013 2:45am 39.7 FL N 36.9-50.2 Red Blood Count September 15, 2013 2:45am 3.80 M/MM3 L 4.00-5.20 Sodium Level September 15, 2013 2:45am 132 MEQ/L L 134-144 Thyroid Stimulating Hormone (TSH) February 12, 2013 5:00pm 4.40 MIU/L N 0.47-4.68 Total Bilirubin September 15, 2013 2:45am < 0.10 MG/DL L 0.20-1.30 Total Protein September 15, 2013 2:45am 7.1 G/DL N 6.3-8.2 Troponin I September 15, 2013 2:45am < 0.012 ng/ml 0-0.12 Turbidity September 15, 2013 2:45am < 20 0-20 Urinalysis Comment June 12, 2013 2:35pm Microscopic not ind. - Has specimen been collected/obtained? Y Urine Bacteria February 12, 2013 7:05pm 2+ H - Has specimen been collected/obtained? Y Urine Bilirubin June 12, 2013 2:35pm Negative - Has specimen been collected/obtained? Y Urine Blood June 12, 2013 2:35pm Trace-lysed H - Has specimen been collected/obtained? Y Urine Collection Type June 12, 2013 2:35pm Voided-not cc-midstr - Has specimen been collected/obtained? Y Urine Color June 12, 2013 2:35pm Yellow - Has specimen been collected/obtained? Y Urine Culture Indicated February 12, 2013 7:05pm Cult reflexed &setup - DELIVERY AIDE PER RN. Urine Glucose (UA) June 12, 2013 2:35pm Negative - Has specimen been collected/obtained? Y Urine Hyaline Casts February 12, 2013 7:05pm 5-10 /LPF - Has specimen been collected/obtained? Y Urine Ketones June 12, 2013 2:35pm Negative - Has specimen been collected/obtained? Y Urine Leukocyte Esterase June 12, 2013 2:35pm Negative - Has specimen been collected/obtained? Y Urine Microscopic Not Indicated July 07, 2010 1:30am Not indicated - Has specimen been collected/obtained? Y Urine Mucus February 12, 2013 7:05pm Present - Has specimen been collected/obtained? Y Urine Nitrite June 12, 2013 2:35pm Negative - Has specimen been collected/obtained? Y Urine Protein June 12, 2013 2:35pm Trace H - Has specimen been collected/obtained? Y Urine RBC February 12, 2013 7:05pm None seen /HPF - Has specimen been collected/obtained? Y Urine Specific [place] June 12, 2013 2:35pm <=1.005 L - Has specimen been collected/obtained? Y Urine Squamous Epithelial Cells February 12, 2013 7:05pm 0-5 - Has specimen been collected/obtained? Y Urine Turbidity June 12, 2013 2:35pm Clear - Has specimen been collected/obtained? Y Urine Urobilinogen June 12, 2013 2:35pm 0.2 EU/DL - Has specimen been collected/obtained? Y Urine WBC February 12, 2013 7:05pm 0-1 /HPF - Has specimen been collected/obtained? Y Urine Yeast February 12, 2013 7:05pm 2+ H - Has specimen been collected /obtained? Y Urine pH June 12, 2013 2:35pm 6.0 - Has specimen been collected/ obtained? Y White Blood Count September 15, 2013 2:45am 13.8 T/MM3 H 4.5-11.0 Urine Culture Urine, Clean Catch-Midstream February 12, 2013 7:40pm Gram Positive Mat Procedures Procedure Status Date Provider(s) DIAGNOSTIC COLONOSCOPY completed 06/19/[address] NEEDLE IN VEIN completed 08/02/13 ROOSEVELT NORIEGA MD Encounters Encounter Location Date/Time Registered Emergency Room [facility] 09/15/13 2:58am Departed Clinic [facility] 08/20/13 8:16am Departed Emergency Room [facility] 08/02/13 5:23pm Registered Clinic [facility] 07/25/13 12:10pm Recent Diagnosis
--- OUTSIDE RECORDS SUMMARY | 2016-05-26 12:53 | XMS REPORT | Continuity of Care Document ---
Author Author [facility] Organization [facility] Address Unknown Phone Unavailable Support Name Relationship Address Phone SUSAN GONSALES MD Caregiver [address] [place] [address] ROOSEVELT NORIEGA MD Caregiver [address] [place] [address] [place] [id number] DANNY WATKINS Next Of Kin Unknown [phone] Insurance Providers Payer Name Policy Number Subscriber Name Relationship Medicare [id number] Con Harrell 17 Self Advance Directives Directive [...] Fluid overload Unknown Active Angioedema Unknown Active Medications Medication Dose Route Sig [...] PO GIVE WITH BREAKFAST 5 Days 02/19/14 Active Social History Social History Problem Response Recorded Date/Time Chewing Tobacco Status No 09/15/2013 3:22am Hx Substance Use No 02/19/2014 9:54pm Hx Alcohol Use No 02/19/2014 9:54pm Has the pt used tobacco in the last 12 months Yes 06/12/2013 6:31pm Tobacco Usage smoke 06/12/2013 10:38pm Query Response Start Date Stop Date Smoking Status Current every day smoker Hospital Discharge Instructions No hospital discharge instructions. Plan of Care No plan of care. Functional Status Query Response Date Recorded Physical Hygiene Self February 19, 2014 9:54pm Disabilities Visual September 15, 2013 3:22am Devices Used Dentures August 21, 2013 2:50pm Dressing Self August 21, 2013 2:50pm Ambulation Self September 15, 2013 3:22am Diet Self August 21, 2013 2:50pm Mental Status Alert Oriented September 15, 2013 3:22am Disabilities Visual September 15, 2013 3:22am Devices Used Dentures August 21, 2013 2:50pm Physical Hygiene Self February 19, 2014 9:54pm Dressing Self August 21, 2013 2:50pm Ambulation Self September 15, 2013 3:22am Diet Self August 21, 2013 2:50pm Allergies, Adverse Reactions, Alerts Allergen Type Severity Reaction Status Last Updated Iodinated Contrast Media - IV Dye Allergy Unknown Active 02/19/14 Penicillin Adverse Reaction Mild NAUSEA Active 08/02/13 Iodine Allergy Unknown IV-BREATHING PROBLEMS Active 02/19/14 Morphine Allergy Unknown SKIN PEELED FROM HANDS AND MOUTH Active 02/19/14 Methimazole Allergy Mild RASH Active 02/19/14 Immunizations Name Given Type Hx Influenza Vaccination No Historical Hx Pneumococcal Vaccination No Historical Hx Influenza Vaccination No Historical Vital Signs Acute Vital Signs Vital Response Date/Time Temperature (Fahrenheit) 97.3 deg F (96.8 - 99.1) Temperature (Calculated Celsius) 36.97383 degrees C (36.0 - 37.3) Pulse Rate (adult) 78 bpm (60 - 100) Respiratory Rate 18 breaths/min (10 - 20) O2 Sat by Pulse Oximetry 97 % (90 - 100) Blood Pressure 122/58 mm Hg Height 5 ft 6 in Weight 234 lb Body Mass Index 37.0 kg/m^2 Results Test Source Date Result Interp. Ref. Range Comments Activated Partial Thromboplast Time August 02, 2013 6:10pm 27.3 SEC N 24- 36 Alanine Aminotransferase (ALT/SGPT) February 19, 2014 9:38pm 28 U/L N 9- 52 Albumin February 19, 2014 9:38pm 3.7 G/DL N 3.5-5.0 Albumin/Globulin Ratio February 19, 2014 9:38pm 1.3 RATIO N 1.1-2.2 Alkaline Phosphatase February 19, 2014 9:38pm 89 U/L N 38-126 Amylase Level July 02, 2009 2:05pm 73 U/L N 30-110 Anion Gap February 19, 2014 9:38pm 7 MEQ/L N 5-15 Aspartate Amino Transf (AST/SGOT) February 19, 2014 9:38pm 20 U/L N 14- 36 B-Type Natriuretic Peptide July 02, 2009 2:05pm < 15 PG/ML L 15-100 BUN/Creatinine Ratio February 19, 2014 9:38pm 18 RATIO N 6-26 Band Neutrophils # March 16, 2012 10:26pm 0.2 T/MM3 - Band Neutrophils % March 16, 2012 10:26pm 1.0 % N 0-6 Basophils # (Auto) February 19, 2014 9:38pm 0.1 T/MM3 N 0-0.2 Basophils # (Manual) March 27, 2008 1:09pm 0.0 T/MM3 N 0-0.2 Basophils % (Manual) March 27, 2008 1:09pm 0.0 % N 0-2 Basophils (%) (Auto) February 19, 2014 9:38pm 0.7 % N 0-2 Blood Urea Nitrogen February 19, 2014 9:38pm 16.0 MG/DL N 7-17 Calcium Level February 19, 2014 9:38pm 8.7 MG/DL N 8.4-10.2 Calculated Osmolality February 19, 2014 9:38pm 267 MOSM/KG N 261-280 Carbon Dioxide Level February 19, 2014 9:38pm 30 MEQ/L N 22-30 Chemistry Specimen Hemolysis February 19, 2014 9:38pm < 15 0-25 0-25 : No Hemolysis.26-70: [...] decrease Phenytoin. Recommend specimen recollection. Chloride Level February 19, 2014 9:38pm 101 MEQ/L N 98-107 Creatinine February 19, 2014 9:38pm 0.9 MG/DL N 0.7-1.2 D-Dimer August 02, 2013 6:10pm 185 NG/ML N 0-230 <224 NG/ML=PRESUMPTIVE NEGATIVE FOR PE OR DVT>224 NG/ML=ADDITIONAL EVALUATION FOR PE OR DVT RECOMMENDED EKG April 25, 2008 7:15am Complete - Eosinophils # (Auto) February 19, 2014 9:38pm 0.3 T/MM3 N 0-0.5 Eosinophils # (Manual) June 12, 2013 1:21pm 0.3 T/MM3 N 0-0.5 Eosinophils % (Manual) June 12, 2013 1:21pm 2.0 % N 0-4 Eosinophils (%) (Auto) February 19, 2014 9:38pm 2.2 % N 0-4 Erythrocyte Sedimentation Rate February 12, 2013 5:00pm 15 MM/HR N 0-20 --- 02/12/13 1945 ---ESR previously reported as: 1 MM/HR Free Thyroxine April 24, 2008 2:30am 1.04 NG/DL N 0.78-2.19 Free Triiodothyronine April 24, 2008 2:30am 3.20 PG/ML N 2.77-5.27 Globulin February 19, 2014 9:38pm 2.9 G/DL N 2.4-3.6 Glomerular Filtration Rate Calc February 19, 2014 9:38pm 63 - Glucometer August 21, 2013 6:25am 138 mg/dL H 65-110 Glucose Level February 19, 2014 9:38pm 98 MG/DL N 65-110 Group A Streptococcus Screen February 19, 2014 9:38pm Negative - Strep culture confirmation to follow Hematocrit February 19, 2014 9:38pm 26.1 % L 36-46 Hemoglobin February 19, 2014 9:38pm 7.3 GM/DL L 12-16 Icterus Index February 19, 2014 9:38pm < 2 0-7 Immature Granulocyte # (Auto) February 19, 2014 9:38pm 0.05 T/MM3 H 0.00 -0.03 Immature Granulocyte % (Auto) February 19, 2014 9:38pm 0.4 % N 0.0-0.5 Influenza Type A Antigen March 16, [...] 16, 2010 6:20pm LAB TEST FORM REQUEST [id number] - Lipase July 02, 2009 2:05pm 63 U/L N 23-300 Lymphocytes # (Auto) February 19, 2014 9:38pm 2.8 T/MM3 N 1-4.8 Lymphocytes # (Manual) June 16, 2013 3:46pm 3.9 T/MM3 N 1-4.8 Lymphocytes % (Manual) June 16, 2013 3:46pm 22.0 % L 23-45 Lymphocytes (%) (Auto) February 19, 2014 9:38pm 23.1 % N 23-45 Magnesium Level February 12, 2013 5:00pm 1.9 MG/DL N 1.6-2.3 Mean Corpuscular Hemoglobin February 19, 2014 9:38pm 19.1 UUG L 26-34 Mean Corpuscular Hemoglobin Concent February 19, 2014 9:38pm 28.0 GM/DL L 31-37 Mean Corpuscular Volume February 19, 2014 9:38pm 68.3 UM3 L 80-100 Mean Platelet Volume February 19, 2014 9:38pm 8.5 UM3 L 9.4-12.4 Monocytes # (Auto) February 19, 2014 9:38pm 0.9 T/MM3 H 0-0.8 Monocytes # (Manual) June 16, 2013 3:46pm 0.7 T/MM3 N 0-0.8 Monocytes % (Manual) June 16, 2013 3:46pm 4.0 % N 0-9.0 Monocytes (%) (Auto) February 19, 2014 9:38pm 7.6 % N 0-9.0 Monoscreen February 19, 2014 9:38pm Negative - WH-Kya-Q-Type Natriuretic Peptide September 15, 2013 2:45am 139 PG/ML N 0- 175 Rule in cut points: <50 years old=450; 50-75 years old=900; >75 years old=1800; When utilizing ProBNP rule-in cut points, adjustment for impaired renal function is typically not required. Neutrophils # (Auto) February 19, 2014 9:38pm 8.1 T/MM3 H 1.8-7.7 Neutrophils # (Manual) June 16, 2013 3:46pm 13.2 T/MM3 H 1.8-7.7 Neutrophils % (Manual) June 16, 2013 3:46pm 74.0 % H 33-66 Neutrophils (%) (Auto) February 19, 2014 9:38pm 66.0 % N 33-66 Platelet Count February 19, 2014 9:38pm 529 T/MM3 H 130-400 Potassium Level February 19, 2014 9:38pm 4.1 MEQ/L N 3.6-5 Prothromb Time International Ratio August 02, 2013 6:10pm 0.94 N 0.86-1.10 THERAPUTIC RANGE=2.00-3.00 FOR ANTI-THROMBOSIS THERAPUTIC RANGE=2.50-3.50 FOR IMPLANTED VALVE RDW Standard Deviation February 19, 2014 9:38pm 44.8 FL N 36.9-50.2 Red Blood Count February 19, 2014 9:38pm 3.82 M/MM3 L 4.00-5.20 Sodium Level February 19, 2014 9:38pm 138 MEQ/L N 134-144 Thyroid Stimulating Hormone (TSH) February 12, 2013 5:00pm 4.40 MIU/L N 0.47-4.68 Total Bilirubin February 19, 2014 9:38pm 0.30 MG/DL N 0.20-1.30 Total Protein February 19, 2014 9:38pm 6.6 G/DL N 6.3-8.2 Troponin I September 15, 2013 2:45am < 0.012 ng/ml 0-0.12 Turbidity February 19, 2014 9:38pm < 20 0-20 Urinalysis Comment February 19, [...] 12, 2013 7:05pm Cult reflexed &setup - [facility] PER RN. Urine Glucose (UA) February 19, [...] Has specimen been collected/obtained? Y Urine Specific [place] February 19, 2014 9:50pm 1.010 L - [...] been collected/ obtained? Y White Blood Count February 19, 2014 9:38pm 12.3 T/MM3 H 4.5-11.0 Urine Culture Urine, Clean Catch-Midstream February 12, 2013 7:40pm Gram Positive Mat Name: CON HARRELL Unit #: [id number] : 1950 Sex: F Loc / Svc: ED DOS: 02/19/14 Signed Report #: [id number] DIAGNOSTIC IMAGING REPORT TYPE OF EXAM: CT NECK W/O CONTRAST Dictated By: ABDULLAHI SANDERS MD INDICATION: ITS.REASON: SORE THROAT, R/O ABSCESS CT NECK W/O CONTRAST: Comparison: None Technique: Axial CT images were performed through the neck without intravenous contrast. Findings: This exam is performed without contrast severely limiting its clinical utility. There is no obvious cervical lymphadenopathy or mass seen. The parotid and submandibular glands are within normal limits. No discrete fluid collection or obvious abscess is identified. Globes are intact. Lenses are located. No gross soft tissue abnormality. Emphysema in the lung apices. Impression: Limited exam without contrast. No obvious abscess. There is a preliminary report by [employer]. . Procedures No known history of procedures. Encounters Encounter Location Date/Time Registered Emergency Room [facility] 02/19/14 8:31pm Recent Diagnosis
[2016-05-26 13:00] VITALS: Ht 167.6 cm; Wt 117.8 kg
[2016-05-26] MEDS ORDERED: INFLUENZA VAC High Dose 2016-17 (Fluzone HD*)(>=65yo) 0.5ml IM ONE (13:15)
[2016-05-26 13:33] VITALS: BP 136/78; PULSE 87; RESP 22; TEMP 97.8; O2SAT 92
[2016-05-26] MEDS ORDERED: ALBUTEROL INH.SOLN. 2.5mg/3ml (0.083%) Neb. AEROSOL PRN (13:45)
[2016-05-26] MEDS ORDERED: ALBUTEROL/IPRATROPIUM INHAL. 2.5mg-0.5mg/3ml Neb. AEROSOL PRN (13:45)
[2016-05-26 14:16] LABS: HCT - HEMATOCRIT 25.1 % (36-46); HGB - HEMOGLOBIN 6.9 GM/DL (12-16); MEAN CORPUSCULAR HGB 20.4 UUG (26-34); MEAN CORPUSCULAR HGB CONC(MCHC 27.5 GM/DL (31-37); MEAN CORPUSCULAR VOLUME 74.3 UM3 (80-100); MEAN PLATELET VOLUME 9.6 UM3 (9.4-12.4); RED BLOOD COUNT 3.38 M/MM3 (4.00-5.20); WBC - WHITE BLOOD COUNT 15.8 T/MM3 (4.5-11.0)
[2016-05-26 14:29] LABS: ALBUMIN 3.5 G/DL (3.5-5.0); ALBUMIN/GLOBULIN RATIO 1.4 RATIO (1.1-2.2); ALKALINE PHOSPHATASE 61 U/L (38-126); ALT (SGPT) 33 U/L (9-52); ANION GAP 11 MEQ/L (5-15); AST (SGOT) 15 U/L (14-36); BUN/CREATININE RATIO 13 RATIO (6-26); CALCIUM 8.4 MG/DL (8.4-10.2); CHLORIDE 108 MEQ/L (98-107); CO2 - CARBON DIOXIDE 24 MEQ/L (22-30); CREATININE 0.8 MG/DL (0.7-1.2); GLOMERULAR FILTRATION RATE 72; GLUCOSE 190 MG/DL (65-110); MAGNESIUM 2.1 MG/DL (1.6-2.3); POTASSIUM 3.6 MEQ/L (3.6-5); SODIUM 143 MEQ/L (134-144)
[2016-05-26 14:44] LABS: LYMPHOCYTES # (MANUAL) 2.2 T/MM3 (1-4.8); METAMYELOCYTES # 0.3 T/MM3; NEUTROPHILS #(MANUAL)-ABSOLUTE 13.3 T/MM3 (1.8-7.7); TOTAL CELLS COUNTED 100 %
[2016-05-26 14:45] LABS: ANISOCYTOSIS 1+; HYPOCHROMASIA 1+; MICROCYTOSIS 1+
--- NOTE | 2016-05-26 14:52 | HPF ---
CHIEF COMPLAINT Shortness of breath. Generalized edema. HPI The patient is a 65-year-old female who presented to the office this morning to see Dr. Robert Sanches, her PCP, with chief complaint of a 2-3 day history of gradually worsening shortness of breath that seemed to get worse with ambulation and also lying flat on her bed. This is also associated with a generalized feeling of swelling. Her right lower extremity is quite swollen up to her thigh. In addition, she says it feels like an elephant is sitting on her chest. She has a history of COPD. I saw her about a week ago at the office for shortness of breath and wheezing. At that time a chest x- ray we thought showed maybe some fluid. We also thought that the patient had a COPD acute exacerbation which we treated appropriately with a breathing treatment. She did well for a while, until the last two or three days. REVIEW OF SYSTEMS Denies any chest pain. No orthopnea. No PND. No leg swelling. Denies hematochezia. No melena. Denies any TIA or CVA symptoms. Denies any symptoms to suggest urinary tract infection. PAST MEDICAL HISTORY 1. Graves' disease. 2. COPD. 3. Severe emphysema. 4. GERD. 5. Hypertension. 6. Osteoporosis. 7. Chronic lower extremity edema. 8. Severe exogenous obesity. 9. Smoking addiction. 10. Chronic diastolic heart failure. 11. Chronic venous insufficiency, lower extremities. 12. Type 2 diabetes, not needing insulin. 13. Acquired hypothyroidism. 14. Dyslipidemia. 15. Chronic low back pain. 16. Spinal stenosis of the lumbar region. 17. Congenital AV malformation. 18. Iron deficiency anemia secondary to chronic self-indulgent pica. 19. Generalized osteoarthritis. 20 Chronic dizziness. 21. Chronic insomnia. 22. Allergic rhinitis. 23. Chronic leukocytosis. SOCIAL HISTORY Patient has smoked about 1-1/2 packs of cigarettes a day for the last 40 years. She has two children. FAMILY HISTORY Brother at the age of 69 from a stroke. Family history of thyroid cancer as well as prostate cancer. Dad at age of 80 from aspiration pneumonia, history of alcoholism. Mom at age of 76 from pulmonary embolism, a history of hypertension, diabetes mellitus as well. ALLERGIES Penicillin, morphine, lisinopril, iodine. CURRENT MEDICATIONS 1. Amlodipine 5 mg one tablet p.o. b.i.d. 2. Celebrex 20 mg tablet p.o. b.i.d. 3. Dulera 200 mcg two puffs b.i.d. 4. Omeprazole 20 mg two tablets once a daily. 5. Fentanyl patch 75 mg - change every 3 days. 6. Fludrocortisone 0.1 mg half a tablet daily. 7. Fluticasone 50 mcg two sprays in each nostril once a day. 8. Levothyroxine 100 mcg one tablet daily. 9. Lisinopril 40 mg one tablet daily. 10. Magnesium oxide 400 mg one tablet daily. 11. Metformin 500 mg one tablet p.o. b.i.d. 12. Singulair 10 mg one tablet a day. 13. Nicotine patch 21 mg - change daily. 14 Nitrostat 0.4 mg dissolve one tablet under tongue p.r.n. 15. [place]wood 10/325 mg half a tablet three times a day p.r.n. pain. 16. Oyster shell calcium b.i.d. 17. Pravastatin 40 mg two tablets daily. 18. ProAir two puffs q.i.d. 19. Promethazine 25 mg one tablet t.i.d. p.r.n. 20. Vitamin D3 1,000 IU two tablets daily. 21. Zyrtec 10 mg one tablet daily. PHYSICAL EXAMINATION GENERAL: She looks mildly dyspneic. VITALS: She has gained about 9 pounds from just one week ago. Weight is 274 pounds. It was 265 pounds just seven days ago. Temperature 99.1. Blood pressure 142/80 with a pulse of 100. Body mass index of 44.6. Height is 65.7 inches. NECK: Supple. LUNGS: A few crackles at the bases. CARDIOVASCULAR: Regular rate and rhythm. No murmur. ABDOMEN: Soft, nontender. EXTREMITIES: No cyanosis. No clubbing. Patient has significant edema in lower extremities, particularly right lower extremity, 2-3+. The edema is pitting and is also starting onto the thigh. Left lower extremity shows some swelling though not as profound. IMAGING Chest x-ray shows cardiomegaly and acute pulmonary vascular markings. LABORATORY A UA was done and she does have evidence of urinary tract infection. PLAN Admit patient to [facility] as an inpatient She meets the two nights rule in that she does have CHF, she has other comorbidities as well as hypoxia. We will have Dr. Eubanks consulted as patient's people greeter. Patient's most recent heart cath was done August 20, 2013, that showed mild coronary artery disease, 50% mid RCA, EF of 70%. We did spirometry in the office on 05/12/2016. This showed severe obstruction/ severe restriction. Will start patient on IV Lasix, potassium replacement, breathing treatments, Solu-Medrol. Lab includes a CBC, CMP, TSH, magnesium, pro-BNP, troponin I, D-dimer, as well as EKG. Will do a chest x-ray in the morning. O2 at 2-4 liters by nasal cannula to keep O2 sat over 92%. ADDENDUM (d. 05/26/16 1237, t. 05/27/16 1843 [facility] [place]) ASSESSMENT 1. Acute congestive heart failure superimposed on chronic congestive heart failure. 2. Lower lobe pneumonia suspected as well. 3. Acute hypoxia. 4. COPD with acute exacerbation. 5. Severe emphysema. 6. History of coronary artery disease with most recent heart catheterization about two or three years ago that showed 50% right coronary artery stenosis. 7. Dyslipidemia. 8. Type 2 diabetes mellitus not needing insulin. 9. Smoking addiction. 10. Chronic back pain. 11. Severe exogenous obesity with BMI over 40. 12. Spinal stenosis, lumbar region. 13. Iron deficient anemia due to chronic self-indulgent pica. 14. Anemia, acute on chronic. Hemoglobin was low yesterday. . MTDD
[2016-05-26] MEDS ORDERED: PNEUMOCOCCAL 23 VACCINE 0.5 ML VIAL IM ONE (15:00)
[2016-05-26 15:03] LABS: PROBNP 2480 PG/ML (0-175)
[2016-05-26 15:25] LABS: THYROID STIM HORMONE-TSH 0.17 MIU/L (0.47-4.68)
[2016-05-26] MEDS: FUROSEMIDE 40 MG/4 ML INJECTION IV SCH (15:49)
[2016-05-26] MEDS: NICOTINE 21 MG PATCH TD SCH (15:49)
[2016-05-26] MEDS ORDERED: ACETAMINOPHEN 325 MG TABLET PO ONE (16:15)
[2016-05-26] MEDS ORDERED: DiphenhydrAMINE 25 MG CAPSULE PO ONE (16:15)
[2016-05-26] MEDS: POTASSIUM CHLORIDE 20 MEQ TABLET PO SCH (16:20)
[2016-05-26] MEDS: METFORMIN 500 MG TABLET PO SCH (16:20)
[2016-05-26] MEDS: BACLOFEN 10 MG TABLET PO SCH ×2 (16:20→20:58)
--- NOTE | 2016-05-26 17:56 | NUR ---
admit Pt to room at 1245 via WC. Pt A/O x3. V/S taken and stable on RA. Pt ambulating well in room, denies dizziness and will call if SOA. Pt rating pain 5/10, PRN norco given 1x and she stated it helped. IV site started and labs drawn, Hgb low and called dr Sanches, N.O. to give 2 units. Vacc updated and pt wanting flu and PN. Pt resting in bed, eating well.
[2016-05-26 18:28] VITALS: TEMP 99.2
--- NOTE | 2016-05-26 18:34 | NUR ---
med Will give PN and Flu vac tomorrow, she will be receiving blood tonight and states feel a little warm. Temp 99.2 oral.
[2016-05-26 20:33] VITALS: BP 196/80; PULSE 83; RESP 20; O2SAT 96
--- NOTE | 2016-05-26 20:35 | NUR ---
BP unable to get BP by VS machine. Manual is 196/80. Will hold PRBC infusion until scheduled Norvasc is given
[2016-05-26] MEDS: CELECOXIB 200 MG CAPSULE PO SCH (20:57)
[2016-05-26] MEDS: AMLODIPINE 5 MG TABLET PO SCH (20:58)
[2016-05-26] MEDS: MONTELUKAST 10 MG TABLET PO SCH (20:58)
[2016-05-26] MEDS: CALCIUM 500 MG TABLET PO SCH (20:58)
--- NOTE | 2016-05-26 21:45 | NUR ---
PRBC manual BP 172/90. Unit initiated to 20 ga. IV site without sign of redness or swelling to site.
[2016-05-26] MEDS: NORMAL SALINE 500 ML IV SCH (21:48)
[2016-05-26] MEDS: FLUTICASONE NASAL SPRAY 50 MCG EA NOSTRIL SCH (22:08)
--- NOTE | 2016-05-26 23:05 | NUR ---
comfort states foot pain, requests Leota. Given. Pt. up in room w/ good balance, voids frequently
[2016-05-27] VITALS (7 sets, daily range): BP systolic 144–190; BP diastolic 67–90; PULSE 75–85; RESP 18–20; TEMP 96.8–98.1; O2SAT 90–96
--- NOTE | 2016-05-27 | NUR ---
IV site is infiltrated. 4 attempts by 2 NS with no success, will continue blood infusion through 22 ga. IV site
--- NOTE | 2016-05-27 00:30 | NUR ---
PRBC unit 2 initiated, IV site without redness or swelling
[2016-05-27] MEDS: FUROSEMIDE 40 MG/4 ML INJECTION IV SCH ×3 (00:39→14:20)
[2016-05-27] MEDS: NORMAL SALINE 500 ML IV SCH (00:52)
--- NOTE | 2016-05-27 03:45 | NUR ---
unit 2 2nd unit PRBC complete without sign of transfusion reaction. Pt. dozes off and on
--- NOTE | 2016-05-27 04:31 | NUR ---
activity pt. up to BR frequently voiding lg. amts. Apparent dyspnea with any activity. Pt. uses PRO-AIR inhaler frequently, stating "every time I get up". States at home uses it 20 times a day. Pt. refuses to allow Nsg staff to control inhaler use
--- NOTE | 2016-05-27 04:40 | NUR ---
comfort states LE pain, requests norco
[2016-05-27 05:40] LABS: HGB - HEMOGLOBIN 9.6 GM/DL (12-16)
[2016-05-27] MEDS: LEVOFLOXACIN 500 MG TABLET PO SCH (05:55)
[2016-05-27] MEDS: OMEPRAZOLE 20 MG CAPSULE PO SCH (05:55)
[2016-05-27] MEDS ORDERED: LEVOTHYROXINE 100 MCG TABLET PO SCH (06:30)
--- NOTE | 2016-05-27 06:36 | NUR ---
rest sleeps for brief periods this noc
[2016-05-27 08:03] LABS: HGB - HEMOGLOBIN 9.7 GM/DL (12-16); MEAN CORPUSCULAR HGB 22.1 UUG (26-34); MEAN CORPUSCULAR HGB CONC(MCHC 29.8 GM/DL (31-37); MEAN PLATELET VOLUME 10.7 UM3 (9.4-12.4); RED BLOOD COUNT 4.39 M/MM3 (4.00-5.20); WBC - WHITE BLOOD COUNT 15.4 T/MM3 (4.5-11.0)
[2016-05-27 08:09] LABS: ANION GAP 17 MEQ/L (5-15); BUN/CREATININE RATIO 20 RATIO (6-26); CALCIUM 9.2 MG/DL (8.4-10.2); CHLORIDE 99 MEQ/L (98-107); CO2 - CARBON DIOXIDE 27 MEQ/L (22-30); CREATININE 0.8 MG/DL (0.7-1.2); GLOMERULAR FILTRATION RATE 72; GLUCOSE 216 MG/DL (65-110); POTASSIUM 3.4 MEQ/L (3.6-5); SODIUM 143 MEQ/L (134-144)
[2016-05-27 08:12] LABS: HCT - HEMATOCRIT 32.5 % (36-46)
[2016-05-27 08:32] LABS: LYMPHOCYTES # (MANUAL) 1.5 T/MM3 (1-4.8); METAMYELOCYTES # 0.2 T/MM3; MONOCYTES # (MANUAL) 0.2 T/MM3 (0-0.8); MYELOCYTES # 0.3 T/MM3; NEUTROPHILS #(MANUAL)-ABSOLUTE 13.2 T/MM3 (1.8-7.7); NUCLEATED RED BLOOD CELLS 2; TOTAL CELLS COUNTED 100 %
[2016-05-27 08:33] LABS: ANISOCYTOSIS 1+; HYPOCHROMASIA 1+; MICROCYTOSIS 1+; POIKILOCYTOSIS 1+
[2016-05-27 08:34] LABS: OVALOCYTES 1+
[2016-05-27] MEDS: NICOTINE 21 MG PATCH TD SCH (08:35)
[2016-05-27] MEDS: NICOTINE PATCH REMOVAL TD SCH (08:35)
[2016-05-27] MEDS: CALCIUM 500 MG TABLET PO SCH ×2 (08:36→22:10)
[2016-05-27] MEDS: METFORMIN 500 MG TABLET PO SCH ×2 (08:36→17:38)
[2016-05-27] MEDS: MAGNESIUM OXIDE 400 MG TABLET PO SCH (08:36)
[2016-05-27] MEDS: LISINOPRIL 40 MG TABLET PO SCH (08:36)
[2016-05-27] MEDS: POTASSIUM CHLORIDE 20 MEQ TABLET PO SCH ×3 (08:36→17:39)
[2016-05-27] MEDS: AMLODIPINE 5 MG TABLET PO SCH ×2 (08:36→22:09)
[2016-05-27] MEDS: FLUDROCORTISONE 0.1 MG TABLET PO SCH (08:36)
[2016-05-27] MEDS: CELECOXIB 200 MG CAPSULE PO SCH ×2 (08:36→22:09)
[2016-05-27] MEDS: BACLOFEN 10 MG TABLET PO SCH ×3 (08:36→22:08)
[2016-05-27] MEDS: FLUTICASONE NASAL SPRAY 50 MCG EA NOSTRIL SCH ×2 (08:37→21:00)
[2016-05-27 08:38] LABS: HYPERSEGMENTED NEUTROPHILS 1+
[2016-05-27 08:39] LABS: GIANT PLATELETS FEW
[2016-05-27] MEDS: FENTANYL PATCH REMOVAL TD SCH (08:44)
[2016-05-27] MEDS ORDERED: POTASSIUM CHLORIDE 20 MEQ TABLET PO ONE (09:00)
[2016-05-27] MEDS ORDERED: FENTANYL 75MCG/HR PATCH TD SCH (09:00)
--- NOTE | 2016-05-27 09:36 | DI ---
EXAM: CHEST, PA LATERAL COMPARISON: 04/09/2016. 03/31/2016. HISTORY: ITS.REASON: SOA, CHEST PAIN, HYPOXIA . FINDINGS: The heart is mildly enlarged. The pulmonary vascularity appears unremarkable. Added opacity seen at the left lung base which may or be related to a prominent cardiophrenic fat pad or atelectasis or infiltrate. The lungs are otherwise clear. There is no evidence for pleural effusion. There is no evidence for a pneumothorax. No osseous abnormalities are identified. IMPRESSION: 1. Cardiomegaly. 2. Added opacity at the left lung base which may be related to a prominent cardiophrenic fat pad or atelectasis rather than infiltrate. LOCATION OF DICTATION: [facility] [place]
--- NOTE | 2016-05-27 10:46 | NUR ---
V/S Pt SBP elevated this morning, NOC RN also stated elevated during night everytime she gets up to ambulate. After resting, SBP came down apx 30 points. Pt denies SOA or C.P.
--- NOTE | 2016-05-27 11:00 | NUR ---
SYLVIA CM VISITED PT. CM EXPLAINED ROLE AND PROVIDED CONTACT INFORMATION. PT PLANS TO RETURN HOME AT TIME OF D/C FROM [facility] [place]. PT DOES USE [facility]. PT IS AWARE TO CONTACT CM IF NEEDS ARISE.
[2016-05-27] MEDS ORDERED: INFLUENZA VAC QIV 2016-17 (Fluarix*)(>=3yo) 0.5ml IM ONE (12:30)
[2016-05-27] MEDS ORDERED: PNEUMOCOCCAL 13 VACCINE 0.5 ML SYRINGE IM ONE (13:15)
--- NOTE | 2016-05-27 14:18 | NUR ---
DM Screen Diet: Sodium Restricted 2 gm Na+, CC 1800 Diabetes education deferred due to patient's medical condition. ADRIEN available @ [phone] Addendum: 05/27/16 at [address] Student charting reviewed by ADRIEN
[2016-05-27] MEDS ORDERED: PRN ORDERS MC (17:15)
[2016-05-27] MEDS: NITROGLYCERIN 0.4 MG SUBLINGUAL TABLET SL PRN ×2 (17:36→18:54)
[2016-05-27] MEDS ORDERED: MORPHINE SULFATE 2 MG SYRINGE IV ONE (17:45)
[2016-05-27] MEDS ORDERED: INFLUENZA VAC. ADMIN CHARGE INJ ONE (18:00)
[2016-05-27 18:02] LABS: ANION GAP 13 MEQ/L (5-15); BUN/CREATININE RATIO 26 RATIO (6-26); CALCIUM 9.4 MG/DL (8.4-10.2); CHLORIDE 97 MEQ/L (98-107); CO2 - CARBON DIOXIDE 31 MEQ/L (22-30); CREATININE 0.9 MG/DL (0.7-1.2); GLOMERULAR FILTRATION RATE 63; GLUCOSE 177 MG/DL (65-110); MAGNESIUM 2.2 MG/DL (1.6-2.3); SODIUM 141 MEQ/L (134-144)
--- NOTE | 2016-05-27 18:19 | NUR ---
status Pt C/O new chest pain while urinating, called dr Sanches, N.O. for EKG, trop, K, mag, nitro, MS 1x. After half hr pt feeling better, labs came back good and relayed to pt to ease her mind. Still having headache since admit, N.O. to use PRN adult orders and added tylenol, PRN norco not helping. Urine output elevated with IV lasix. Pt ambulating well up at charu in room, denies SOA or dizziness. Eating well, has been eating ice, have explained she needs to also drink more water.
--- NOTE | 2016-05-27 18:39 | PNF ---
DATE 05/27/2016 SUBJECTIVE Patient was doing better earlier today. Her shortness of breath has improved significantly. About an hour ago she developed acute chest pain in the substernal region radiating to her back. That lasted for a few minutes or so. By the time I am seeing the patient her chest pain has actually resolved. Prior to leaving the room she started having similar chest pain as well as severe headache. PHYSICAL EXAM GENERAL: Initially when I got into the room the patient looked comfortable and by the time I left she was holding her head and having chest pain. NECK: Supple. CHEST: Lungs are clear. CARDIOVASCULAR: Regular rate and rhythm. ABDOMEN: Soft. EXTREMITIES: Her edema is significantly better. LABORATORY Potassium 3.4. Potassium was replaced earlier with 20 mEq potassium. ASSESSMENT 1. Acute chest pain. 2. History of coronary artery disease with RCA 50% two or three years ago. 3. Acute CHF superimposed on chronic CHF. Patient diuresed really well, 9 pounds off over the last 24 hours. Chest x-ray in the office looked more like pulmonary congestion. Chest x-ray today shows some improvement, possible left lower lobe pneumonia. I think after she diuresed overnight her chest x-ray looks better at this time. 4. Left lower lobe pneumonia. 5. Anxiety disorder. 6. Acute headache superimposed on chronic headache. 7. Type 2 diabetes mellitus not needing insulin. 9. COPD exacerbation. 10. Hypertension. 12. Acquired hypothyroidism. PLAN EKG. Lab including CBC, CMP, magnesium. Consultation to Dr. Eubanks will be initiated. Will treat her headache with pain medication. Will give some IV morphine to see if we can get that improved. MTDD
--- NOTE | 2016-05-27 18:39 | NUR ---
pain Pt stating headache getting better. C.P. gone, no need for another dose of nitro. Denies N/V, able to eat 100% of dinner.
--- NOTE | 2016-05-27 18:50 | HPF ---
ADDENDUM (d. 05/26/16 1237, t. 05/27/16 [id number] [facility] [place]) ASSESSMENT 1. Acute congestive heart failure superimposed on chronic congestive heart failure. 2. Lower lobe pneumonia suspected as well. 3. Acute hypoxia. 4. COPD with acute exacerbation. 5. Severe emphysema. 6. History of coronary artery disease with most recent heart catheterization about two or three years ago that showed 50% right coronary artery stenosis. 7. Dyslipidemia. 8. Type 2 diabetes mellitus not needing insulin. 9. Smoking addiction. 10. Chronic back pain. 11. Severe exogenous obesity with BMI over 40. 12. Spinal stenosis, lumbar region. 13. Iron deficient anemia due to chronic self-indulgent pica. 14. Anemia, acute on chronic. Hemoglobin was low yesterday. MTDD
--- NOTE | 2016-05-27 19:02 | NUR ---
med Pt stated C.P. back and another nitro given, happened after urinating again. Will alert on coming NOC RN about new C.P.
[2016-05-27] MEDS: HYDROCODONE/APAP 5 mg/325 mg TABLET PO PRN (22:03)
[2016-05-27] MEDS: MONTELUKAST 10 MG TABLET PO SCH (22:11)
[2016-05-28] VITALS: BP 147/78; PULSE 105; RESP 20; TEMP 97.6; O2SAT 94
[2016-05-28] MEDS: ACETAMINOPHEN 325 MG TABLET PO PRN ×3 (01:20→15:49)
[2016-05-28] MEDS: FUROSEMIDE 40 MG/4 ML INJECTION IV SCH ×2 (03:15→15:09)
[2016-05-28] MEDS: LEVOFLOXACIN 500 MG TABLET PO SCH (05:28)
[2016-05-28] MEDS: HYDROCODONE/APAP 5 mg/325 mg TABLET PO PRN ×3 (05:28→21:15)
[2016-05-28] MEDS: LEVOTHYROXINE 88 MCG TABLET PO SCH (05:39)
[2016-05-28] MEDS: OMEPRAZOLE 20 MG CAPSULE PO SCH (05:39)
[2016-05-28 07:00] VITALS: BP 149/73; PULSE 73; RESP 18; TEMP 98.3; O2SAT 93
[2016-05-28 08:00] VITALS: PULSE 73; RESP 18
[2016-05-28] MEDS: NICOTINE 21 MG PATCH TD SCH (08:18)
[2016-05-28] MEDS: NICOTINE PATCH REMOVAL TD SCH (08:18)
[2016-05-28] MEDS: CALCIUM 500 MG TABLET PO SCH ×2 (08:18→21:14)
[2016-05-28] MEDS: CELECOXIB 200 MG CAPSULE PO SCH ×2 (08:19→21:00)
[2016-05-28] MEDS: LISINOPRIL 40 MG TABLET PO SCH (08:19)
[2016-05-28] MEDS: BACLOFEN 10 MG TABLET PO SCH ×3 (08:20→21:00)
[2016-05-28] MEDS: METFORMIN 500 MG TABLET PO SCH ×2 (08:20→18:19)
[2016-05-28] MEDS: FLUDROCORTISONE 0.1 MG TABLET PO SCH (08:21)
[2016-05-28] MEDS: MAGNESIUM OXIDE 400 MG TABLET PO SCH (08:22)
[2016-05-28] MEDS: AMLODIPINE 5 MG TABLET PO SCH ×2 (08:22→21:00)
[2016-05-28] MEDS: POTASSIUM CHLORIDE 20 MEQ TABLET PO SCH ×3 (08:23→18:19)
[2016-05-28] MEDS: FLUTICASONE NASAL SPRAY 50 MCG EA NOSTRIL SCH ×2 (08:30→21:00)
[2016-05-28 10:01] VITALS: PULSE 73; RESP 18
--- NOTE | 2016-05-28 11:09 | DI ---
Indication: ITS.REASON: Back, chest and abd pain PROCEDURE: CT CHEST/ABDOMEN/pelvis W/O: Encounter: Initial Comparison: CT chest dated April 24, 2008 and CTA chest dated April 29, 2016 Technique: Axial CT images were performed through the chest, abdomen and pelvis without intravenous contrast. Coronal and sagittal two-dimensional reformats. Automated Exposure Control and Iterative Reconstruction dose reducing techniques were utilized. Findings: Chest: Moderate emphysema. No consolidative pneumonia, pleural effusion or pneumothorax. No worrisome pulmonary nodule or mass. The central airways are patent. No axillary or mediastinal adenopathy. Heart size is normal. Mildly prominent epicardial fat pads. Atherosclerotic plaque in noted in the coronary arteries. No pericardial effusion. Abdomen/pelvis: The unenhanced contours of the liver are unremarkable. The gallbladder is surgically absent. The spleen, pancreas and adrenal glands are within normal limits. Kidneys are normal. The bladder is normal. Uterus is absent. No free fluid. No evidence of a bowel obstruction. Bone windows show no worrisome lytic or blastic osseous lesion. Impression: No acute disease process seen. .
[2016-05-28 12:27] LABS: ANION GAP 14 MEQ/L (5-15); BUN/CREATININE RATIO 33 RATIO (6-26); CALCIUM 9.4 MG/DL (8.4-10.2); CHLORIDE 97 MEQ/L (98-107); CO2 - CARBON DIOXIDE 29 MEQ/L (22-30); CREATININE 0.9 MG/DL (0.7-1.2); GLOMERULAR FILTRATION RATE 63; GLUCOSE 210 MG/DL (65-110); POTASSIUM 4.3 MEQ/L (3.6-5); SODIUM 140 MEQ/L (134-144)
[2016-05-28] MEDS: NITROGLYCERIN 0.4 MG SUBLINGUAL TABLET SL PRN (12:37)
[2016-05-28] MEDS: FENTANYL PATCH REMOVAL TD SCH (12:50)
[2016-05-28] MEDS ORDERED: FENTANYL PATCH REMOVAL TD SCH (13:00)
[2016-05-28] MEDS ORDERED: FENTANYL 75MCG/HR PATCH TD SCH (13:00)
--- NOTE | 2016-05-28 13:13 | CONSPD ---
Consultation Info Date DATE: 05/28/16 TIME: 13:09 HPI - Adult Date DATE: 05/28/16 TIME: 13:09 General Date of Admission Date of Admission: May 26, 2016 at 12:41 Past Medical History Past Medical History Metabolic: hypercholesterolemia, hypertension, hyperthyroidism Cardiac: CAD, CHF, angina GI: GERD Female: UTI, kidney stones, renal insufficiency Musculoskeletal: back pain, other Hematologic: anemia Surgical History General: appendix, gallbladder, other Cardiac: cardiac cath Reproductive/: hysterectomy Joint: knee Current Medications Home Meds Active Scripts Baclofen (Baclofen) 10 Mg Tablet, 10 MG PO TID, #30 TAB 0 Refills Prov:KYRIE COPPOLA MD 04/29/16 Reported Medications Albuterol Sulfate (Proair HFA 90 mcg/actuation) 8.5 Gm Hfa.aer.ad, 1 PUFF INH Q4H Y for PRN ORDERS 04/29/16 Albuterol Sulfate (Ventolin HFA 90 mcg/actuation) 18 Gm Hfa.aer.ad, 1 PUFF INH BID Y for PRN ORDERS 04/29/16 Calcium Carbonate (Oyster Shell Calcium) 500 Mg Tablet, 500 MG PO BID 04/29/16 Omeprazole (Omeprazole) 40 Mg Capsule.dr, 40 MG PO ACB 04/29/16 Nitroglycerin (Nitrostat) 0.4 Mg Tablet, 0.4 MG SL Q5MIN Y for CHEST PAIN 04/29/16 Nicotine (Nicotine Patch 21 mg/24hr) 1 Each Patch.td24, 1 PATCH TOP DAILY 04/29/16 Montelukast Sodium (Montelukast Sodium) 10 Mg Tablet, 10 MG PO HS 04/29/16 Fluticasone Propionate (Fluticasone Prop 50 mcg/actuation Nasal [place]) 120 [place] /16 G [place], 2 SPRAY EA NOSTRIL BID 04/29/16 Hydrocodone/Acetaminophen (Dell 10-325 Tablet) 10-325 Tablet, 0.5 TAB PO TID Y for PAIN 04/29/16 Lisinopril (Lisinopril) 40 Mg Tablet, 40 MG PO DAILY 03/31/16 Celecoxib (Celecoxib) 200 Mg Capsule, 200 MG PO BID 01/10/16 Levothyroxine Sodium (Levothyroxine Sodium) 100 Mcg Tablet, 100 MCG PO ACB 01/10/16 Fludrocortisone Acetate (Fludrocortisone Acetate) 0.1 Mg Tablet, 0.05 MG PO DAILY 06/19/13 Amlodipine (Norvasc) 5 Mg Tablet, 5 MG PO BID 06/18/13 Metformin Hcl (Metformin Hcl) 500 Mg Tablet, 500 MG PO BID 02/12/13 Magnesium Oxide (Magnesium Oxide) 400 Mg Tablet, 400 MG PO DAILY 02/12/13 Fentanyl (Fentanyl 75 Mcg/Hr) 1 Patch .72 H Patch.td72, 1 PATCH TD Q3D 03/16/12 Albuterol Sulfate (Ventolin Hfa) 18 Gm Hfa.aer.ad, 2 PUFF IH QID Y for PRN ORDERS 07/04/10 Allergies: Coded Allergies: Iodinated Contrast Media - Oral and (Verified Allergy, Severe, spasums, uncontrolled, 05/26/16) iodine (Verified Allergy, Severe, IV-BREATHING PROBLEMS, 05/26/16) BREATHING PROBLEMS morphine (Verified Allergy, Severe, SKIN PEELED FROM HANDS AND MOUTH, 05/26) methimazole (Verified Allergy, Mild, RASH, 04/29/16) lisinopril (Verified Allergy, Unknown, 04/29/16) Penicillins (Verified Adverse Reaction, Mild, NAUSEA, 04/29/16) Family History FOUND: alcohol abuse, diabetes, hypertension, hypothyroidsim, other Vaccines 201402/27/14 Social History # of Packs/Tins per Day: 1.5 Substance Use Type: does not use Alcohol Intake: none Marital Status: Single Housing: apartment Household Members: none Advance Directives: Yes DPOA for Healthcare Only (son) Physical Exam General Vital Signs Vital Signs Date Time Temp Pulse Resp B/P Pulse Ox O2 Delivery O2 Flow Rate FiO2 05/28/16 10:01 73 18 05/28/16 07:00 98.3 149/73 93 Room Air Height (Feet): 5 Height (Inches): 6.00 Neurologic RN Documented GCS Eye Opening: Verbal: Motor: Total: Laboratory Laboratory Tests Test 05/26/16 13:54 05/27/16 04:39 05/27/16 17:29 05/27/16 22:31 White Blood Count 15.8T/MM3 15.4T/MM3 Red Blood Count 3.38M/MM3 4.39M/MM3 Hemoglobin 6.9GM/DL 9.7GM/DL Hematocrit 25.1% 32.5% Mean Corpuscular Volume 74.3UM3 74.0UM3 Mean Corpuscular Hemoglobin 20.4UUG 22.1UUG Mean Corpuscular Hemoglobin Concent 27.5GM/DL 29.8GM/DL RDW Standard Deviation 45.8FL 47.6FL Platelet Count 295T/MM3 296T/MM3 Mean Platelet Volume 9.6UM3 10.7UM3 Immature Granulocyte % (Auto) % % Neutrophils (%) (Auto) % % Lymphocytes (%) (Auto) % % Monocytes (%) (Auto) % % Eosinophils (%) (Auto) % % Basophils (%) (Auto) % % Absolute Immature Granulocyte (auto T/MM3 T/MM3 Absolute Neutrophils (auto) T/MM3 T/MM3 Absolute Lymphocytes (auto) T/MM3 T/MM3 Absolute Monocytes (auto) T/MM3 T/MM3 Absolute Eosinophils (auto) T/MM3 T/MM3 Absolute Basophils (auto) T/MM3 T/MM3 Neutrophils % (Manual) 84.0% 86.0% Lymphocytes % (Manual) 14.0% 10.0% Metamyelocytes % 2.0% 1.0% Absolute Neutrophils (Manual) 13.3T/MM3 13.2T/MM3 Lymphocytes # (Manual) 2.2T/MM3 1.5T/MM3 Metamyelocytes # 0.3T/MM3 0.2T/MM3 Hypochromasia 1+ 1+ Anisocytosis 1+ 1+ Microcytosis 1+ 1+ Red Cell Morphology Comment Abnormal Abnorm D-Dimer < 150NG/ML Turbidity < 20 < 20 < 20 Sodium Level 143MEQ/L 143MEQ/L 141MEQ/L Potassium Level 3.6MEQ/L 3.4MEQ/L 4.0MEQ/L Chloride Level 108MEQ/L 99MEQ/L 97MEQ/L Carbon Dioxide Level 24MEQ/L 27MEQ/L 31MEQ/L Anion Gap 11MEQ/L 17MEQ/L 13MEQ/L Blood Urea Nitrogen 10.0MG/DL 16.0MG/DL 23.0MG/DL Creatinine 0.8MG/DL 0.8MG/DL 0.9MG/DL Glomerular Filtration Rate Calc 72 72 63 BUN/Creatinine Ratio 13RATIO 20RATIO 26RATIO Glucose Level 190MG/DL 216MG/DL 177MG/DL Calculated Osmolality 279MOSM/KG 283MOSM/KG 279MOSM/KG Calcium Level 8.4MG/DL 9.2MG/DL 9.4MG/DL Magnesium Level 2.1MG/DL 2.2MG/DL Total Bilirubin 0.30MG/DL Icterus Index < 2 < 2 < 2 Aspartate Amino Transf (AST/SGOT) 15U/L Alanine Aminotransferase (ALT/SGPT) 33U/L Alkaline Phosphatase 61U/L Troponin I < 0.012ng/ml < 0.012ng/ml 0.012ng/ml [id number] Natriuretic Peptide 2480PG/ML Total Protein 6.0G/DL Albumin 3.5G/DL Globulin 2.5G/DL Albumin/Globulin Ratio 1.4RATIO Thyroid Stimulating Hormone (TSH) 0.17MIU/L Chemistry Specimen Hemolysis < 15 18 < 15 < 15 Monocytes % (Manual) 1.0% Myelocytes % 2.0% Monocytes # (Manual) 0.2T/MM3 Myelocytes # 0.3T/MM3 Nucleated Red Blood Cells 2 Hypersegmented Neutrophils 1+ Giant Platelets Few Poikilocytosis 1+ Ovalocytes 1+ Test 05/28/16 11:25 Turbidity < 20 Sodium Level 140MEQ/L Potassium Level 4.3MEQ/L Chloride Level 97MEQ/L Carbon Dioxide Level 29MEQ/L Anion Gap 14MEQ/L Blood Urea Nitrogen 30.0MG/DL Creatinine 0.9MG/DL Glomerular Filtration Rate Calc 63 BUN/Creatinine Ratio 33RATIO Glucose Level 210MG/DL Calculated Osmolality 281MOSM/KG Calcium Level 9.4MG/DL Icterus Index < 2 Chemistry Specimen Hemolysis < 15 Impression/Recommendation Impression atypical CP stabbing and unresponsive to NTG , repoprducible by palpation , but repotedly with activity single vessel CAD ,angiogrsam 2013 DM2 HTN DLDO chronic pain syndrome with drug seeking bejhaviour severe iron def anemia with hx of PICA DCHF A/C better after diuresis outpt w/u and f/u w me 1 mo . would like to ensure Hgb stability as outpt before any future cardiac w/u such as a pharm stress nuc scan. FULL CS DICATTED SHANTEL SEPULVEDA MD May 28, 2016 13:13
--- NOTE | 2016-05-28 14:51 | CONSF ---
DATE OF CONSULTATION 05/28/2016 The patient was interviewed and examined. Available records were reviewed and the following conclusions were made: 1. Chest pain essentially atypical although some mixed features. 2. Single-vessel coronary artery disease. 3. Drug-seeking behavior with chronic pain syndrome. 4. Type 2 diabetes mellitus. 5. Dyslipidemia. 6. Hypertension. 7. Severe iron deficiency anemia attributed to chronic self-indulgent pica. 8. Congenital AV malformation. 9. COPD. 10. Chronic diastolic heart failure. 11. Chronic venous insufficiency. DISCUSSION/PLAN 1. No objective evidence of myocardial ischemia. Her chest pain predominantly is atypical. 2. Cardiac workup is contraindicated at this time. Would wait at least one month before workup such as outpatient stress nuclear scan, pharmacological stress nuclear scan - again, depends on clinical course. 3. I recommend GI endoscopy unless done recently. 4. Consider addition of low-dose beta yecenia such as atenolol 25 mg daily although should be stopped if the patient develops significant wheezing. 5. Consider addition of statin drug due to her coronary artery disease and diabetes. 6. If chronic GI bleed is ruled out, aspirin 81 mg daily should be considered. 7. Would like to see the patient in followup in one month in the office. Could see her sooner at your request. Ideally, would like to see a stable hemoglobin for a while before we entertain any cardiac workup. 8. I also instructed the patient's nurse to make sure adequate ambulation prior to safe discharge home. Thank you very much for your consultation, Dr. Sanches. HISTORY Mrs. Harrell is a complex 65-year-old female known to me with coronary artery disease and diastolic heart failure. She is a complex individual. She presented with chronic intermittent lower extremity edema. She has chronic pain syndrome, on fentanyl patch. She started complaining of headache more than anything else. She says she has been having increasing shortness of breath. She said her lungs have been filling up with water. She has had increased dyspnea for two or three days with ambulation and also while lying flat in bed, associated with generalized swelling. She has been receiving IV Lasix. She says her right leg is always quite swollen. She has had previous venous Doppler on her right leg one year ago which was negative for DVT. She also describes chest pain. She was giving a description at the time of admission of heaviness in the chest. She tells me that she has been having stabbing pain under her left breast which is reproducible by palpation (sore to touch). It also radiates to the left shoulder and occurred during ambulation, not with range of motion of her arm. Again, I was able to easily reproduce her pain although she is tender all across her chest. The pain lasted about 20 minutes. Has had it while getting up and walking. The pain suddenly goes away on its own when she received nitroglycerin. Doesn't really think that nitroglycerin made much difference. She is asking me to have "more pain medicine for her headache" which seemed to be bothering her more than anything else. She emphasized her headache during history and little description of her chest pain. She is breathing easier. She has been walking into the bathroom. She denies hematochezia or melena. She has not had a bowel movement here in the hospital. The patient has been seen by Dr. Ruiz and Dr. Choudhary in the past apparently for severe iron deficiency anemia, so I assume she has had a full workup. The patient is somewhat of an unreliable historian and no details about previous workup are available to me. REVIEW OF SYSTEMS As in HPI above, denies hematochezia. No TIA or stroke-like symptoms. Denies falls or syncope. She denies dysuria, hematuria. Denies hemoptysis or phlegm production. She has chronic shortness of breath. She lives at home. She takes care of her house chores. She is physically inactive. She complains of chronic headaches. She complains of chronic low back pain. She has been complaining of insomnia and did not sleep well last night. PAST MEDICAL HISTORY/PAST SURGICAL HISTORY 1. Coronary artery disease. Angiogram in 2013 showed about 50% long tubular lesion in the proximal and mid RCA. Single-vessel disease. Normal LV function. Filling pressures were mildly elevated at 17 mmHg. Previous echocardiogram was unremarkable. 2. COPD. 3. Graves' disease. 4. GERD. 5. Hypertension. 6. Dyslipidemia. 7. Type 2 diabetes mellitus. 8. Chronic lower extremity edema. 9. Venous insufficiency. 10. Smoking addiction. 11. Hypothyroidism. 12. Spinal stenosis. 13. Congenital AV malformation. 14. Iron deficiency anemia with chronic self-indulgent pica. 15. Osteoarthritis. 16. Insomnia. 17. Rhinitis. 19. Leukocytosis. SOCIAL HISTORY Smoker of less than a pack of cigarettes a day. She used to smoke as much as two packs daily since age 14. She has two children. FAMILY HISTORY Brother had a stroke. Another brother had heart disease. Mother had heart disease. ALLERGIES Penicillin. Morphine. Lisinopril. Iodine. CURRENT HOME MEDICATIONS Amlodipine 5 mg daily. Omeprazole. Fentanyl patch. Lisinopril. Metformin. Pravastatin 40 mg two tablets daily. Inhalers. Long list of noncardiac medications. Celebrex. PHYSICAL EXAM GENERAL: Alert and oriented x 3, obese. Looks in no acute cardiorespiratory distress. VITAL SIGNS: All stable. Oxygen saturation 93% on room air. Afebrile. HEENT: Normocephalic, atraumatic. NECK: Jugular venous pressure is normal. No orthopnea during physical examination. Carotid upstrokes are equal without bruits. CHEST: Clear to auscultation bilaterally. HEART: Regular rate and rhythm. Positive S4 gallop. ABDOMEN: Soft. Mildly tender, nonspecific. No guarding. Normoactive bowel sounds present. No organomegaly or masses. EXTREMITIES: Lower extremities with unilateral edema, mild right ankle. Peripheral pulses are intact. Some skin thickening noted, especially on the right suggestive of lymphedema. SKIN: Warm and pink. Calves are soft. No edema on the left. I/O RECORDS Positive diuresis of -3606. Weight is down by 5 kg, down to 120.6 kg. DIAGNOSTIC DATA Chest x-ray from 05/27/2016 showed no pulmonary congestion. CT scan of the chest and abdomen showed emphysema changes. No acute other abnormalities. D-dimer was negative. Hemoglobin 6.9 with MCV 74. White count 15.4. Platelet count 295,000. Hemoglobin after transfusion was 9.7. Chemistry showed BUN/creatinine 30/0.9, normal electrolytes. Troponins are normal x 3. ProBNP on admission 2480. Cardiac enzymes are normal. TSH 0.17. Serial EKGs including EKG performed just 15 minutes ago showed no acute changes, normal telemetry and sinus rhythm. MTDD
[2016-05-28 16:00] VITALS: BP 173/82; PULSE 81; RESP 20; TEMP 98.1; O2SAT 92
--- NOTE | 2016-05-28 17:29 | NUR ---
SHIFT SUMMARY ALERT AND ORIENTATED X3, ROOM AIR, UP AD MELECIO WITH NO ASSISTIVE DEVICES. PT EXPERIENCED CHEST PAIN TODAY AND WAS GIVEN NITRO PRN. CHEST PAIN WENT AWAY AFTER ADMINISTRATION. COMPLAINED OF HEADACHE THROUGHOUT THE DAY, GIVEN ACETAMINOPHEN PRN AND NORCO SCHEDULED. PT RECEIVING LASIX EVERY 12 HRS, WITH ADEQUATE URINE OUTPUT. FENTANYL PATCH FELL OFF ONTO CLOTHES, NEW ONE WAS PUT ON. COMPLAINED OF INCREASING PAIN WHEN GETTING UP TO BATHROOM OR WALKING. CALL LIGHT WITHIN REACH.
--- NOTE | 2016-05-28 17:57 | NUR ---
SHIFT CONCUR WITH DATA CONTROL ASSISTANT. IN ADDITION, PT REQUESTED INCREASED PAIN MEDS. DR. GARCÍA NOTIFIED AND NO NEW ORDERS PLACED. PT TOLD SHE NEEDED TO WALK IN ONOFRE, PT REFUSED UNTIL PAIN MED GIVEN. PRN AND SCHEDULED PAIN MEDS GIVEN, PT CONTINUED TO REFUSE TO AMBULATE IN [place]. PT IS ON ROOM AIR, DENIES N/V AND SOA.
[2016-05-28 20:00] VITALS: PULSE 81; RESP 20
[2016-05-28] MEDS: MONTELUKAST 10 MG TABLET PO SCH (21:14)
[2016-05-29] VITALS: BP 188/102; PULSE 83; RESP 18; TEMP 98.3; O2SAT 94
[2016-05-29 00:40] VITALS: BP 207/107
[2016-05-29 01:45] VITALS: BP 141/78
[2016-05-29] MEDS: NITROGLYCERIN 0.4 MG SUBLINGUAL TABLET SL PRN ×2 (02:53→03:26)
[2016-05-29] MEDS ORDERED: MENTHOL TOP PRN (03:15)
[2016-05-29] MEDS ORDERED: METHYL SALICYLATE TOP PRN (03:15)
[2016-05-29] MEDS: FUROSEMIDE 40 MG/4 ML INJECTION IV SCH (03:56)
[2016-05-29] MEDS: HYDROCODONE/APAP 5 mg/325 mg TABLET PO PRN (04:42)
[2016-05-29] MEDS: OMEPRAZOLE 20 MG CAPSULE PO SCH (04:43)
[2016-05-29] MEDS: LEVOFLOXACIN 500 MG TABLET PO SCH (04:43)
[2016-05-29] MEDS: LEVOTHYROXINE 88 MCG TABLET PO SCH (04:45)
[2016-05-29 07:32] VITALS: BP 179/94; PULSE 83; RESP 18; TEMP 97.5; O2SAT 95
[2016-05-29 08:00] VITALS: PULSE 83; RESP 18
[2016-05-29] MEDS: LISINOPRIL 40 MG TABLET PO SCH (08:33)
[2016-05-29] MEDS: CELECOXIB 200 MG CAPSULE PO SCH (08:34)
[2016-05-29] MEDS: POTASSIUM CHLORIDE 20 MEQ TABLET PO SCH ×2 (08:34→11:28)
[2016-05-29] MEDS: FLUDROCORTISONE 0.1 MG TABLET PO SCH (08:35)
[2016-05-29] MEDS: NICOTINE 21 MG PATCH TD SCH (08:35)
[2016-05-29] MEDS: NICOTINE PATCH REMOVAL TD SCH (08:35)
[2016-05-29] MEDS: ACETAMINOPHEN 325 MG TABLET PO PRN (08:36)
[2016-05-29] MEDS: MAGNESIUM OXIDE 400 MG TABLET PO SCH (08:37)
[2016-05-29] MEDS: BACLOFEN 10 MG TABLET PO SCH (08:37)
[2016-05-29] MEDS: METFORMIN 500 MG TABLET PO SCH (08:37)
[2016-05-29] MEDS: CALCIUM 500 MG TABLET PO SCH (08:37)
[2016-05-29] MEDS: AMLODIPINE 5 MG TABLET PO SCH (08:38)
[2016-05-29] MEDS: FLUTICASONE NASAL SPRAY 50 MCG EA NOSTRIL SCH (08:39)
--- NOTE | 2016-05-29 08:55 | NUR ---
SHIFT SUMMARY PT A/O X 3. UP AT MELECIO IN HER ROOM. REFUSED TO WALK IN THE ONOF[place]. PT ASKED FOR HER PAIN MEDICATION. AFTER REVIEWING HER MAR IT WAS TO EARLY TO GIVE SCHEDULE OR PRN PAIN MEDICATIONS. PT CALLED NUMBER OF TIMES ASKING FOR PAIN MEDICATION. REMINDED HER IT WAS TO EARLY. AT 2110 SCHEDULED NORCO 5 MG 2 TABS GIVEN PER ORDER. PT CONTINUE TO STATE HER BACK WAS HURTING AND SHE NEEDED PAIN MEDICATION. DR GONSALES WAS NOTIFIED OF PT'S PAIN AND HAD ASKED FOR NITRO. DR GONSALES SAID TO GIVE THE NITRO IF A SECOND NITRO WAS GIVEN NOTIFY DR CHIN. PT DID SLEEP FOR SHORT TIME. AT OO30 PT B/P WAS 188/102. ASKED PT TO LAY DOWN AND REST. DR GONSALES WAS PAGED, NO RETURNED CALL. RECHECKED B/P, 207/107. PT WAS HAVING BACK, CHEST PAIN AND HEADACHE. PT LAY DOWN ON HER LEFT SIDE AND ASKED TO REST. SHE WAS ABLE TO REST FOR HOUR. DR GONSALES WAS RE-PAGED, NO RETURNED CALL. CHECKED WITH FRONT DECK IF DR CHIN WAS TAKING CALL. DR CHIN WAS CHECKED OUT TO HIS GROUP WHO DO NOT COME TO [facility]. NITRO WAS GIVEN AT 0250 AND PT LAY DOWN, LIGHTS OUT AND TV SOUND TURN DOWN. PT CALLED AGAIN AT 0315 WITH THE PAIN, SECOND NITRO GIVEN AT 0326. DR GONSALES DIDN'T RETURN HIS PAGE. RITU TEXTED DR OCASIO HE CALLED REPORT WAS GIVEN. HE OFFER TO HELP IF PT NEEDED ANY THING ELSE. CHARGE ELIEZER ALTMAN AND ROQUE AMEZQUITA WAS UP DATED.
[2016-05-29] MEDS ORDERED: FURO-153 PO (10:40)
[2016-05-29] MEDS ORDERED: METO-275 PO (10:40)
[2016-05-29] MEDS ORDERED: POTA-81 PO (10:40)
[2016-05-29] MEDS ORDERED: LEVO88TA4 PO (10:40)
[2016-05-29] MEDS ORDERED: FERR325T40 PO (10:57)
[2016-05-29 11:16] VITALS: PULSE 83; RESP 18
[2016-05-29 12:19] LABS: ALBUMIN 3.9 G/DL (3.5-5.0); ALBUMIN/GLOBULIN RATIO 1.3 RATIO (1.1-2.2); ALKALINE PHOSPHATASE 48 U/L (38-126); ALT (SGPT) 27 U/L (9-52); ANION GAP 10 MEQ/L (5-15); AST (SGOT) 23 U/L (14-36); BUN/CREATININE RATIO 48 RATIO (6-26); CALCIUM 9.3 MG/DL (8.4-10.2); CHLORIDE 98 MEQ/L (98-107); CO2 - CARBON DIOXIDE 30 MEQ/L (22-30); CREATININE 0.8 MG/DL (0.7-1.2); GLOMERULAR FILTRATION RATE 72; GLUCOSE 179 MG/DL (65-110); SODIUM 138 MEQ/L (134-144); TOTAL PROTEIN 6.8 G/DL (6.3-8.2)
[2016-05-29 12:30] LABS: HCT - HEMATOCRIT 37.5 % (36-46); HGB - HEMOGLOBIN 11.1 GM/DL (12-16); MEAN CORPUSCULAR HGB 21.8 UUG (26-34); MEAN CORPUSCULAR HGB CONC(MCHC 29.6 GM/DL (31-37); MEAN CORPUSCULAR VOLUME 73.7 UM3 (80-100); MEAN PLATELET VOLUME 9.8 UM3 (9.4-12.4); RED BLOOD COUNT 5.09 M/MM3 (4.00-5.20); WBC - WHITE BLOOD COUNT 15.6 T/MM3 (4.5-11.0)
[2016-05-29 13:11] LABS: BAND NEUTROPHILS # 0.2 T/MM3; LYMPHOCYTES # (MANUAL) 1.9 T/MM3 (1-4.8); MONOCYTES # (MANUAL) 0.2 T/MM3 (0-0.8); NEUTROPHILS #(MANUAL)-ABSOLUTE 13.4 T/MM3 (1.8-7.7); TOTAL CELLS COUNTED 100 %
[2016-05-29 13:12] LABS: ANISOCYTOSIS 1+; POIKILOCYTOSIS 1+
--- NOTE | 2016-05-29 13:23 | NUR ---
DISCHARGE PT LEFT HOSPITAL AT 1320. NURSE ESCORTED HER OUT WITH WHEELCHAIR, AND A FRIEND CAME TO GIVE HER A RIDE. IV WAS TAKEN OUT AND PATIENT WAS GIVEN MEDS OF NITRO, ANALGESIC CREAM, AND FLONASE. HOME MEDS WERE ALSO GIVEN TO HER TO TAKE HOME. SCRIPTS AND DISCHARGE INSTRUCTIONS WERE REVIEWED WITH PATIENT AND GIVEN IN PACKET TO TAKE HOME. PATIENT STATED TO WANT TO GET SCRIPTS FILLED IN [place] ON 05/30. PATIENT LEFT IN HOME CLOTHES.
--- NOTE | 2016-05-29 15:19 | PNF ---
DATE 05/28/16 SUBJECTIVE Patient is lying in bed watching TV when I got to the room. She seemed very comfortable prior to that. When I walked in to the room and turned the light on I greeted patient "good morning". Patient then complained that she is having chest pain and headache. Patient presented with workup that has been extensive. OBJECTIVE GENERAL: Patient looks comfortable and in no distress. HEENT: Unremarkable. NECK: Supple. LUNGS: Sounds are clear. CARDIOVASCULAR: Regular rate and rhythm. ABDOMEN: Soft and nontender. EXTREMITIES: No clubbing. Edema has gone down significantly with the IV Lasix. CHEST: When I push in the mid sternal in close proximity to the breast region, she is tender on palpation quite a bit. LABORATORY No lab this morning, however I ordered CBC and BMP to follow up on anemia today. ASSESSMENT 1. Acute/recurrent chest pain. Patient is ruled out for myocardial infarction with serial EKGs as well as serial cardiac enzymes. I believe the chest pain is not cardiac etiology. CT chest angiogram has been negative for pneumonia, mass or aneurysm. D-Dimer has been negative suggestive of no evidence of pulmonary embolism. 2. Acute pulmonary edema in a patient with chronic diastolic heart failure. Patient actually responded to diuresis because the chest CT does not clearly show acute pulmonary edema. Patient had multiple doses of IV Lasix prior to the chest CT done here in the hospital. She responded both clinically and radiographically to that treatment. 3. Acute hypoxia. 4. COPD/severe emphysema with acute exacerbation 5. Coronary artery disease with 50% stenosis based on echo in 2014. 6. Severe anemia. I believe this is on a chronic basis. This patient has chronic ___. She has had a hemologic workup in the past, in addition patient had an EGD and colonoscopy done less than a year ago, I believe. 7. Chronic headache, probably associated with rebound headache. She does have multiple medications. 8. Type 2 diabetes non-insulin. 9. Smoking addiction. 10. Chronic back pain.] 11. Severe exogenous obesity. 12. Lumbar spinal stenosis. PLAN 1. Reviewed extensive workup done by house physician. It shows no evidence of acute coronary artery syndrome at this time. 2. Patient had a urinary tract infection is on Levaquin as well. 3. Patient is medically stable enough to dismiss to home today with a follow up scheduled with me and Dr. Eubanks. 4. Dr. Eubanks reviewed in quite detail and I fully appreciated this. [facility]
--- NOTE | 2016-05-29 18:04 | DSF ---
FINAL DIAGNOSES 1. Acute pulmonary edema superimposed on chronic diastolic dysfunction. 2. Acute atypical chest pain. This patient ruled out for acute myocardial infarction based on serial cardiac enzymes and EKG. 3. Urinary tract infection, not otherwise specified. 4. Severe emphysema/COPD with acute exacerbation. 5. Hypoxia. 6. Chronic headache. 7. Type 2 diabetes, non-insulin requiring. 8. History of coronary artery disease with most recent heart cath in 2013 shows 50% right coronary artery stenosis. Patient did not have an indication of acute myocardial infarction at this hospitalization. 9. Chronic back pain. 10. Costochondritis that caused the patient's chest pain. 11. Severe exogenous obesity with BMI over 40. 12. Lumbosacral spinal stenosis. 13. Severe anemia requiring blood transfusion at this time. This is probably chronic anemia due to self-indulgent pica. 14. Iron deficiency anemia due to chronic- indulgent pica. CONSULTATION Cy Eubanks M.D. Patient's chef german was consulted and saw patient and his input was appreciated. REASON FOR ADMISSION Patient is a 65-year-old female who presented to the office to see Dr. Robert Sanches for admission. Chief complaint of a two or three day history of gradually worsening shortness of breath that seems to get worse when patient is lying on her bed. Patient has extremity swelling, right lower extremity is more swollen lately up to the thigh. In addition she felt like an elephant was sitting on her chest. She has a history of COPD noticed about a week earlier with shortness of breath and wheezing. At that time she started to show some fluid. Patient also was treated for COPD acute exacerbation. She did well for awhile until the last two or three days. On the chest x-ray in the office was done and showed cardiomegaly and pulmonary congestion. PHYSICAL EXAMINATION VITAL SIGNS: 02 sat at the office was 90% on room air which actually dropped to like 84% with ambulation. GENERAL: Patient looks mildly dyspneic. She got * just one week ago. LUNGS: She has a few crackles at the bases. HEART: Rate is regular. EXTREMITY: Significant lower extremity edema, at least 2 to 3+, mostly on the left lower extremity up to her thigh. LABORATORY/RADIOLOGY Chest x-ray showed cardiomegaly with acute increased pulmonary vascular markings. UA showed a urinary tract infection as well. HOSPITAL COURSE This patient was admitted to Psychiatric medical floor under the care of Dr. Robert Sanches. The patient was started on aggressive IV Lasix for diuresis. Patient was also started on her home medications. We did cardiac workup including serial EKG, as well as troponin I which were negative. Patient continued to have chest pain, therefore Dr. Eubanks was consulted. He believed the patient's chest pain is atypical and there was some mixed feature. Patient had a severe anemia as well with hemoglobin 6.9. I believe this is on a chronic basis and is low enough that it required blood transfusion. Patient was given two units of packed red blood cells. Her hemoglobin improved to 9.7. Hemoglobin the day of dismissal is pending. Dr. Eubanks saw patient and he thought an additional cardiac workup including heart cath, nuclear stress test to try to check the patient's severe anemia. Patient had extensive workup for anemia in the past including seeing delinquency prevention social worker and oncologist as well as an EGD and colonoscopy. All of those have failed to find patient's cause for anemia. She had marked gastritis on EGD done less than a year ago. I believe her anemia is profoundly due to chronic indulgent and excessively eating ice. Patient continued to complaint of chest pain and a headache. Typically she complained of chest pain when I would go into the room. As soon as I leave the room the chest pain is gone. The case in point on the day of dismissal, I went by her door, opened the door. She was laying down watching TV in the darkness. I turned the light on and said "good morning" and then patient started complaining of chest pain. Dr. Eubanks thinks that patient's chest pain is atypical and that patient is medically stable from a cardiac standpoint to be dismissed to home, even yesterday. Overnight we had her ambulated. Additional workups done on this hospitalization included the angiography that was done. A CT of abdomen and pelvis was done on 05/28/16. This was read by radiology as essentially no acute disease process. Patient had CT of chest done 04/19/16 which was not remarkable either. Noticed vascularity and plaque in the coronary arteries which was new at that time. Patient remained on room air by the time of dismissal. She did have chest pain due to costochondritis. This patient from my standpoint is medically stable to dismiss to home today. DISMISSAL MEDICATION 1. Lasix 40 mg one tablet p.o. b.i.d. 2. Synthroid 88 mcg which is a new dosage during the hospitalization due to decreased TSH. 3. Metoprolol 25 mg one tablet daily. This is a new medication as well. 4. Potassium chloride 20 mEq one tablet p.o. b.i.d. new medication as well. 5. Albuterol one to two puffs four to six hours p.r.n. 6. Baclofen 10 mg one tablet p.o. t.i.d. 7. Calcium carbonate 500 mg one p.o. b.i.d. 8. Fentanyl patch 75 mcg per hour, change every three days. 9. Fludrocortisone 0.05 mg one tablet daily. 10. Flonase two sprays in each nostril once daily. 11. [place] 10/2.25 1/2 tablet p.o. b.i.d. p.r.n. 12. Lisinopril 40 mg one tablet daily. 13. Magnesium oxide 400 mg one tablet daily. 14. Metformin 500 mg tablet p.o. b.i.d. 15. Singulair 10 mg tablet at bedtime. 16. Nicotine patch 21 mcg change every day. 17. Nitroglycerin p.r.n. chest pain. 18. Omeprazole 40 mg one tablet daily. Stopped Medications include: Amlodipine due to lower extremity edema. Celebrex due to anemia. Levothyroxine and ____ due to excessive amounts. DIET 1. 1800 steve ADA diet. 2. Patient is to restrict her fluid intake to less than 2,000 per day. FOLLOW UP 1. Patient is to follow up with Dr. Robert Sanches in seven to ten days. 2. Patient to follow up with Dr. Eubanks as he desires. Patient to follow up on an outpatient basis. [facility]
--- NOTE | 2016-05-31 09:59 | PNPDOC ---
Progress Note Date 05/31/16 I called [facility] on 05/30/16 for the 24-hour phone call follow up. I left a message with my call back number. I called again on 05/31/16, again unsuccessful. ANUSHA HEATH APRN May 31, 2016 09:59
--- NOTE | 2016-05-31 15:48 | NUR ---
CM CM LVM
--- NOTE | 2016-06-01 15:25 | NUR ---
CM CM LVM
--- NOTE | 2016-06-02 14:06 | NUR ---
CM PHONE IS NOW D/C
== END 2016-05-29 13:07 | disposition home health service (06) | DRG 291 ==
LOC: MED 12:41
PROVIDERS: ADMIT Family Medicine; ATTEND Family Medicine
PROC: 30233N1 Transfusion of Nonautologous Red Blood Cells into Peripheral Vein, Percutaneous Approach (ICD-10-PCS; principal; 2016-05-26)
PROC: 30233N1 Transfusion of Nonautologous Red Blood Cells into Peripheral Vein, Percutaneous Approach (ICD-10-PCS; 2016-05-27)
PROC: 3E0234Z Introduction of Serum, Toxoid and Vaccine into Muscle, Percutaneous Approach (ICD-10-PCS; 2016-05-27)
DX: I11.0 Hypertensive heart disease with heart failure (principal); I50.32 Chronic diastolic (congestive) heart failure; J81.0 Acute pulmonary edema; J44.1 Chronic obstructive pulmonary disease with (acute) exacerbation; N39.0 Urinary tract infection, site not specified; Z68.42 Body mass index [BMI] 45.0-49.9, adult; E11.9 Type 2 diabetes mellitus without complications; R09.02 Hypoxemia; I25.10 Atherosclerotic heart disease of native coronary artery without angina pectoris; E78.5 Hyperlipidemia, unspecified; F17.210 Nicotine dependence, cigarettes, uncomplicated; G89.29 Other chronic pain; E66.09 Other obesity due to excess calories; M48.07 Spinal stenosis, lumbosacral region; D50.9 Iron deficiency anemia, unspecified; F41.9 Anxiety disorder, unspecified; E03.9 Hypothyroidism, unspecified; R51 Headache; M94.0 Chondrocostal junction syndrome [Tietze]; F50.89 Other specified eating disorder; I87.2 Venous insufficiency (chronic) (peripheral); Q23.9 Congenital malformation of aortic and mitral valves, unspecified; Z79.899 Other long term (current) drug therapy; Z79.84 Long term (current) use of oral hypoglycemic drugs; Z23 Encounter for immunization
CPT/HCPCS: 90471; 90653; S9538; 36415; 80048; 80053; 83735; 83880; 84443; 84484; 85018; 85025; 85379; 86850; 86900; 86901; 86920; 86922; 90686; 90732; 93005; 99406